=== PATIENT | male | born 1980 | race Two or more races ===

== ENCOUNTER 2020-07-12 08:46 | Outpatient (REF) | payer OTHER, SELFPAY ==
[2020-07-12 12:27] LABS: Alanine Aminotransferase 30 U/L (0-40); Albumin Level 4.1 g/dL (3.5-5.0); Alkaline Phosphatase 93 U/L (39-117); Anion Gap 12 (12-20); Aspartate Amino Transferase 19 U/L (5-37); Bilirubin Total 0.6 mg/dL (0.0-1.0); Blood Urea Nitrogen 19 mg/dL (9-16); Calcium 9.3 mg/dL (8.4-10.2); Carbon Dioxide 28 mmol/L (22-29); Chloride 101 mmol/L (96-108); Cholesterol 154 mg/dL; Estimated Glomerular Filt Rate > 60; Glucose Fasting 189 mg/dL (60-99); HDL Cholesterol 45 mg/dL; LDL Cholesterol Calculated 100 mg/dl; Potassium 4.4 mmol/l (3.3-5.1); Sodium 137 mmol/L (135-145); Total Protein 6.9 g/dL (6.5-8.0); Triglycerides 46 mg/dL
[2020-07-12 12:28] LABS: Free T4 (Free Thyroxine) 1.23 ng/dL (0.71-1.85); Thyroid Stimulating Hormone 0.62 mIU/mL (0.32-4.0)
[2020-07-12 13:47] LABS: Vitamin B12 415 pg/mL (200-900)
[2020-07-13 08:37] LABS: LDL Cholesterol Direct 106 mg/dL (<100)
[2020-07-13 11:22] LABS: Thyroglobulin Antibodies <1 IU/mL (< or = 1); Thyroid Peroxidase Antibodies <1 IU/mL (<9)
[2020-07-14 00:26] LABS: C Peptide 0.62 ng/mL (0.80-3.85)
[2020-07-15 16:17] LABS: Thyroid Stimulating Immunoglob <89 % baseline (<140)
[2020-07-15 16:42] LABS: Thyrotropin Receptor Antibody <1.00 IU/L (<=2.00)
[2020-07-15 22:31] LABS: Glutamic acid decarboxylase Ab <5 IU/mL (<5)
[2020-07-18 03:42] LABS: Islet Cell Antibody Screen NEGATIVE (NEGATIVE)
== END 2020-07-12 08:47 | disposition home or self-care (01) ==
LOC: HO.LAB 08:46
PROVIDERS: PCP Internal Medicine; Visit Provider Internal Medicine Endocrinology, Diabetes & Metabolism
DX: E10.65 Type 1 diabetes mellitus with hyperglycemia (principal); E10.21 Type 1 diabetes mellitus with diabetic nephropathy; E10.319 Type 1 diabetes mellitus with unspecified diabetic retinopathy without macular edema; E10.40 Type 1 diabetes mellitus with diabetic neuropathy, unspecified; E78.5 Hyperlipidemia, unspecified; E55.9 Vitamin D deficiency, unspecified; I10 Essential (primary) hypertension; R79.89 Other specified abnormal findings of blood chemistry
CPT/HCPCS: 36415; 80053; 80061; 82607; 82947; 83520; 83721; 84439; 84443; 84445; 84681; 86255; 86341; 86376; 86800

== ENCOUNTER 2021-03-14 13:13 | Inpatient (IN) | payer OTHER, SELFPAY ==
--- NOTE | ~2021-03-14 | XR_ITS ---
EXAMINATION: XR CHEST CLINICAL INFORMATION: Pleuritic chest pain COMPARISON: None TECHNIQUE: 2 views of the chest were obtained. FINDINGS: No significant abnormality is noted involving the heart, lungs, mediastinum, bony thorax or soft tissues. XR/XR chest 2V IMPRESSION: Unremarkable examination.
--- NOTE | ~2021-03-14 | XR_ITS ---
EXAMINATION: XR ANKLE, RIGHT CLINICAL INFORMATION: Concern for osteomyelitis COMPARISON: None TECHNIQUE: AP, lateral, and mortise views of the right ankle. FINDINGS: There is soft tissue swelling at the lateral malleolus. There is a skin ulceration at the lateral malleolus. There is no focal bone lesion. No abnormal periosteal reaction. There is no focal osteopenia. No radiographic evidence for osteomyelitis. No fracture or dislocation. The 5 mm osseous density inferior to the tip of lateral malleolus is a chronic change. XR/XR ankle RT min 3V IMPRESSION: Skin ulceration with soft tissue swelling at lateral malleolus. No acute osseous abnormality. No radiographic evidence for osteomyelitis.
--- NOTE | ~2021-03-14 | MR_ITS ---
EXAMINATION: MR ANKLE WITHOUT AND WITH CONTRAST, RIGHT CLINICAL INFORMATION: Nonhealing diabetic wound. COMPARISON: Radiographs 03/14/2021. TECHNIQUE: MRI of the ankle was performed before and after the intravenous administration of 7.5 mL Gadavist on a high-field scanner. FINDINGS: There is a skin ulceration superficial to the lateral malleolus with edema and heterogeneous enhancement of the underlying soft tissues compatible with cellulitis. This extends to the cortex where there is a subtle erosion and minimal edema/enhancement of the underlying bone marrow compatible with early osteomyelitis. Diffuse subcutaneous edema. Mild chronic Achilles tendinopathy. MR/MR ankle RT wo/w con IMPRESSION: Shallow ulcer superficial to the lateral malleolus with cellulitis and a very subtle cortical erosion of the underlying fibula and evidence of minimal or very early osteomyelitis.
[2021-03-14 13:42] VITALS: BP 108/65; PULSE 83; RESP 18; TEMP 36.5; O2SAT 97; BMI 20.5
[2021-03-14 15:14] LABS: MANUAL DIFF FLAG NO
[2021-03-14 15:16] LABS: Basophils Absolute Auto 0.1 X10*3/uL (0.0-0.2); Basophils Percent Auto 0.5 % (0-2); Eosinophils Absolute Auto 0.3 X10*3/uL (0.0-0.4); Eosinophils Percent Auto 2.9 % (0-4); Hemoglobin 13.2 g/dl (14.0-18.0); Imm Gran Abs Auto 0.02 X10*3/uL (0.00-0.03); Imm Gran Pct Auto 0.2 % (0.0-0.4); Lymphocytes Absolute Auto 2.6 X10*3/uL (1.2-4.9); Lymphocytes Percent Auto 27.8 % (20-40); Mean Corpuscular HGB Conc 34.7 g/dl (31.0-36.0); Mean Corpuscular Hemoglobin 31.1 pg (27.0-33.0); Mean Corpuscular Volume 89.4 fL (80-98); Mean Platelet Volume 12.1 fL (9.4-12.4); Monocytes Absolute Auto 1.1 X10*3/uL (0.1-1.2); Monocytes Percent Auto 12.1 % (2-11); Neutrophils Absolute Auto 5.2 X10*3/uL (2.0-8.3); Neutrophils Percent Auto 56.5 % (45-73); Platelet Count 247 X10*3/uL (160-400); Red Blood Count 4.25 X10*6/uL (4.60-5.80); Red Cell Distribution Width 12.2 % (11.0-16.0); White Blood Count 9.3 X10*3/uL (4.8-10.8)
[2021-03-14 15:45] LABS: Anion Gap 10 (12-20); Blood Urea Nitrogen 19 mg/dL (9-16); Carbon Dioxide 29 mmol/L (22-29); Chloride 102 mmol/L (96-108); Creatinine Clr Calc Pharmacy 55.8; Estimated Glomerular Filt Rate 42; Glucose Random 165 mg/dL (60-115); Potassium 4.9 mmol/L (3.3-5.1); Sodium 136 mmol/L (135-145)
[2021-03-14 17:49] VITALS: BP 173/101; PULSE 78; RESP 20; TEMP 36.4; O2SAT 99
--- NOTE | 2021-03-14 18:49 | ED_ITS ---
HPI - General Adult General Chief complaint: General Medical Stated complaint: need debridement,imaging and iv antibiotics Time Seen by Provider: 03/14/21 18:17 Source: patient Mode of arrival: ambulatory Limitations: no limitations History of Present Illness HPI narrative: patient diabetic scraped his right lateral malleolus about 4 weeks ago since then wound is not healing patient remove the scab 3 days ago a nd noted the increased pain and redness around the wound. Patient denies any fever or chills no pus discharge patient diabetic using insulin and blood sugar is well controlled Related Data Home Medications Medication Instructions Recorded Confirmed lisinopril 20 mg tablet 20 mg PO DAILY 07/12/20 07/12/20 pen needle, diabetic 32 gauge x #50 ea 07/12/20 07/12/20 Previous Rx's Medication Instructions Recorded insulin lispro 100 unit/mL See Rx Instructions SUBCUT 06/18/20 subcutaneous pen .COMPLEX 30 Days #15 ml cholecalciferol (vitamin D3) 50 50 mcg PO DAILY #30 cap 09/15/20 mcg (2,000 unit) capsule atorvastatin 20 mg tablet 20 mg PO BEDTIME 30 Days #30 tab 09/16/20 BD Marge 2nd Gen Pen Needle 32 #150 ea NS 03/14/21 gauge x Lantus Solostar U-100 Insulin 100 20 unit SUBCUT QPM 30 Days #15 ml 03/14/21 unit/mL (3 mL) subcutaneous pen NS Allergies Allergy/AdvReac Type Severity Reaction Status Date / Time No Known Allergies Allergy Verified 03/14/21 13:42 Review of Systems Review of Systems: Yes all other systems are reviewed and are negative PMFSH Past Medical History Medical History Diabetes type 1, uncontrolled Diabetic nephropathy associated with type 1 diabetes mellitus Diabetic neuropathy associated with type 1 diabetes mellitus Diabetic retinopathy associated with type 1 diabetes mellitus Dyslipidemia Hypertension Low TSH level Vitamin D deficiency Surgical History History of torsion of testis Hx of hernia repair Family History Family History Father Diabetes mellitus Mother Alzheimer disease Brother Diabetes mellitus Sister Breast cancer, stage 0 Social History Social History Years Smoked: 7 Advance Directives: No Advance Directives Information Provided: Yes Physical Exam Vital Signs: Vital Signs: Last Vital Signs Temp 97.6 F 03/14/21 17:49 Pulse 89 03/14/21 20:05 Resp 20 03/14/21 17:49 BP 168/100 H 03/14/21 20:05 Pulse Ox 99 03/14/21 17:49 Body Mass Index 20.5 Const: General: comfortable and no acute distress Orientation/consciousness: patient oriented x3 HENMT: Head: Yes normocephalic Eyes: General: appearance normal, both eyes and all related structures Neck: Neck: Yes normal visual inspection Chest: Chest palpation & inspection: normal inspection of the chest Resp: Effort & Inspection: normal respiratory effort Auscultation: clear to auscultation bilaterally Cardio: Rate: regular rate Rhythm: regular rhythm Heart sounds: S1 normal heart sound present and S2 normal heart sound present Peripheral pulse s: Peripheral pulses 2+ throughout GI: Inspection: Yes normal to inspection Palpation (GI): Soft to palpation and nontender Auscultation: normal bowel sounds Skin: General skin exam: no rashes or lesions noted Neuro: General: patient oriented x3 Extrem: Ankle/foot/toe images: 1. 2 cm round ulcer with scab with surrounding erythema and warmth warmth spreading all the way till mid landrum no crepitus no pus discharge Medical Decision Making MDM Narrative Medical decision making narrative: patient with nonhealing wound at right lateral malleolus close to the bone with warmth spreading to the mid leg with history of diabetes noticed to have elevated creatinine to 1.7 from baseline of 0.8. Will admit patient for IV antibiotics rule out osteomyelitis Lab Data Lab results reviewed: Yes I reviewed the patient's lab results. Result diagrams: 03/14/21 15:04 03/14/21 15:04 Labs: Lab Results 03/14/21 03/14/21 03/14/21 Range/Units 15:04 15:04 19:03 WBC 9.3 (4.8-10.8) X10*3/uL RBC 4.25 L (4.60-5.80) X10*6/uL Hgb 13.2 L (14.0-18.0) g/dl Hct 38.0 L (42-52) % MCV 89.4 (80-98) fL MCH 31.1 (27.0-33.0) pg MCHC 34.7 (31.0-36.0) g/dl RDW 12.2 (11.0-16.0) % Plt Count 247 (160-400) X10*3/uL MPV 12.1 (9.4-12.4) fL Immature Gran % (Auto) 0.2 (0.0-0.4) % Neut % (Auto) 56.5 (45-73) % Lymph % (Auto) 27.8 (20-40) % [place] % (Auto) 12.1 H (2-11) % Eos % (Auto) 2.9 (0-4) % Baso % (Auto) 0.5 (0-2) % Lymph # (Auto) 2.6 (1.2-4.9) X10*3/uL [place] # (Auto) 1.1 (0.1-1.2) X10*3/uL Eos # (Auto) 0.3 (0.0-0.4) X10*3/uL Baso # (Auto) 0.1 (0.0-0.2) X10*3/uL Abs Immat Gran (auto) 0.02 (0.00-0.03) X10*3/uL Absolute Neuts (auto) 5.2 (2.0-8.3) X10*3/uL Absolute Nucleated RBC 0.000 (0.0-0.012) X10*3/uL Nucleated RBC % (auto) 0.0 (0.0-0.2) /100WBC Sodium 136 (135-145) mmol/L Potassium 4.9 (3.3-5.1) mmol/L Chloride 102 (96-108) mmol/L Carbon Dioxide 29 (22-29) mmol/L Anion Gap 10 L (12-20) BUN 19 H (9-16) mg/dL Creatinine 1.77 H (0.5-1.4) mg/dL Estim Creat Clear Calc 55.8 Estimated GFR 42 Random Glucose 165 H (60-115) mg/dL Lactic Acid 0.7 (0.5-2.0) mmol/L Calcium 9.0 (8.4-10.2) mg/dL Discharge Plan Discharge Clinical Impression: Non-healing wound of right heel, CARLOS (acute kidney injury) Patient Disposition: Admitted As Inpatient
[2021-03-14 19:29] LABS: Lactic Acid 0.7 mmol/L (0.5-2.0)
[2021-03-14 20:05] VITALS: BP 168/100; PULSE 89
[2021-03-14] MEDS: lisinopriL 20 MG TABLET PO (20:05)
[2021-03-14] MEDS: Piperacillin Sodium/Tazobactam 3.375 GM in 0.9 % Sodium Chloride 50 ML IV (20:06)
[2021-03-14] MEDS: vancomycin HCL 1,000 MG in 0.9 % Sodium Chloride 250 ML 270 MG IV (20:11)
--- NOTE | 2021-03-14 21:57 | MHC.CM.PN ---
CM met with pt. Pending admission. No bed assignment yet. A&Ox3. No HCP- education provided and pt refuses at this time. [id number] YOHO. Live alone and has children 1/2 time. Uses diabetic supplies and has no services. D/C plan is home without services. Pt to arrange transportation at discharge. CM to follow for d/c needs.
[2021-03-14] MEDS: 0.9 % Sodium Chloride 1,000 ML 999 ML IVCONT (22:00)
--- NOTE | 2021-03-14 22:01 | PC.NURSE ---
NS UP AND RUNNING W/O SITE INTACT. COVID SWAB OBTAINED.
[2021-03-14 22:19] LABS: COVID-19 Test Negative (Negative)
--- NOTE | 2021-03-14 22:35 | PHA.MEDREC ---
Pharmacy Consult ? Medication Reconciliation Pharmacy has completed the medication reconciliation.
[2021-03-15] VITALS (14 sets, daily range): BP systolic 161–216; BP diastolic 80–116; PULSE 85–97; RESP 16–19; TEMP 35.9–37; O2SAT 97–98; BMI 20.9
--- NOTE | 2021-03-15 01:27 | PC.NURSE ---
FLOOR UNABLE TO TAKE REPORT WILL RETURN CALL.
--- NOTE | 2021-03-15 01:54 | PC.NURSE ---
report given to floor. pt to floor in w/c.
[2021-03-15 02:08] LABS: C Reactive Protein 0.47 mg/dL (< or = 0.50)
[2021-03-15] MEDS: Lactated Ringers 1,000 ML 125 ML IVCONT ×3 (02:36→20:34)
[2021-03-15] MEDS: Enoxaparin Sodium 40 MG/0.4 ML SYRINGE SUBCUT (02:38)
[2021-03-15] MEDS: Acetaminophen 325 MG TABLET 650 MG PO ×3 (02:38→14:55)
[2021-03-15] MEDS: oxyCODONE HCl Immed Release 5 MG TABLET PO ×3 (02:39→14:55)
[2021-03-15] MEDS: Insulin Glargine,Hum.rec.anlog 100 UNIT/ML 10 ML VIAL 20 UNIT SUBCUT (02:39)
[2021-03-15] MEDS: 0.9 % Sodium Chloride Flush 3 ML SYRINGE IVFLUSH ×2 (02:39→07:54)
[2021-03-15] MEDS: Piperacillin Sodium/Tazobactam 3.375 GM in 0.9 % Sodium Chloride 50 ML IV ×4 (02:45→22:20)
--- NOTE | 2021-03-15 05:36 | PM.IMHP ---
History of Present Illness Date of Service: 03/14/21 Chief Complaint: nonhealing wound this is a 40-year-old male with past medical history of diabetes as well as hypertension who presents hospital after an nonhealing right malleolus wound. Patient reports that about 4 weeks ago he was playing with his kids, so had a fall, scraped his right ankle, and did not think much of it until about 3 days ago on Sunday where he noticed that there was swelling as well as pain while working out. patient reports that although he has some neuropathy in his feet he does feel pain. He reports that he called his PCP and was asked to come to urgent care and urgent care sent him to the ED. He denies any fever but feels chills, denies any abdominal pain nausea or vomiting, no chest pain, no shortness of breath, no cough, no diarrhea constipation, no headache or change in vision, no dizziness, no urinary symptoms and otherwise no lower extremity edema except in his left foot. On arrival to the ED patient hemodynamically stable with no significant abnormal vitals Labs are significant for WBC count of 9.3, hemoglobin of 13.2, BUN of 19, creatinine of 1.77 from a baseline of around 0.8, ankle x-ray shows skin ulceration was soft tissue swelling at the lateral malleolus with no acute osseous abnormality. No radiographic evidence of osteomyelitis patient will be admitted for further management Review of Systems Review of Systems: Yes all other systems are reviewed and are negative [facility] Medical History Diabetes type 1, uncontrolled Diabetic nephropathy associated with type 1 diabetes mellitus Diabetic neuropathy associated with type 1 diabetes mellitus Diabetic retinopathy associated with type 1 diabetes mellitus Dyslipidemia Hypertension Low TSH level Vitamin D deficiency Family History Father Diabetes mellitus Mother Alzheimer disease Brother Diabetes mellitus Sister Breast cancer, stage 0 Surgical History History of torsion of testis Hx of hernia repair Social History Household Members: Children Housing: Apartment Do you presently have visiting nurse or other home services: No Patient Tobacco Use Status: Never used Tobacco Years Smoked: 7 e-Cigarette/Vaping Use: Never Used Use of substances other than those prescribed or required for medical reasons: No Have you been hit, kicked, punched, or otherwise hurt by someone within the past year? If so, by whom?: No Do you feel safe in your current relationship?: Yes Is there a partner from a previous relationship who is making you feel unsafe now?: No Are you made to feel afraid or neglected: No Advance Directives: No Advance Directives Information Provided: Yes Do you have thoughts of harming others: None Do you have a plan to hurt others: No Plan Recently lost weight without trying: No Nutrition Risks: No Nutritional Risk Poor oral hygiene: No service: No Current occupational status: employed Meds Allergies Allergy/AdvReac Type Severity Reaction Status Date / Time No Known Allergies Allergy Verified 03/14/21 13:42 Active Medications: Current Medications Generic Name Dose Route Start Last Admin Trade Name Freq PRN Reason Stop Dose Admin Acetaminophen 650 mg 03/15/21 01:50 03/15/21 02:38 Acetaminophen 325 Mg Tablet PO 650 mg Q6H PRN Administration Pain, Mild (Pain Scale 1-3) Enoxaparin Sodium 40 mg 03/15/21 01:50 03/15/21 02:38 Enoxaparin Sodium 40 Mg/0.4 Ml Syringe SUBCUT 40 mg Q24H SKYLER Administration Piperacillin Sod/Tazobactam 50 mls @ 100 mls/hr 03/15/21 03:00 03/15/21 03:19 Sod 3.375 gm/ Sodium Chloride IV Infused Q6H SKYLER Infusion Vancomycin HCl 1,250 mg/ 250 mls @ 166.667 mls/hr 03/15/21 01:50 Sodium Chloride IV Q12H SKYLER Lactated Ringer's 1,000 mls @ 125 mls/hr 03/15/21 01:50 03/15/21 03:19 Lr IVCONT 125 mls/hr .Q8H SKYLER Infusion Insulin Glargine 20 unit 03/15/21 01:50 03/15/21 02:39 Insulin Glargine,Hum.Rec.Anlog 100 Unit/Ml 10 Ml Vial SUBCUT 20 unit BEDTIME SKYLER Administration Insulin Human Lispro 0 unit 03/15/21 07:30 Insulin Lispro 100 Unit/Ml 3 Ml Vial SUBCUT QIDACHS [facility] Protocol Lisinopril 20 mg 03/15/21 09:00 Lisinopril 20 Mg Tablet PO DAILY [facility] Protocol Ondansetron HCl 4 mg 03/15/21 01:50 Ondansetron Hcl 4 Mg/2 Ml Vial IVPUSH Q8H PRN Nausea and Vomiting Oxycodone HCl 5 mg 03/15/21 01:50 03/15/21 02:39 Oxycodone Hcl Immed Release 5 Mg Tablet PO 5 mg Q6H PRN Administration Pain, Severe (Pain Scale 7-10) Pharmacy Consult 1 each 03/15/21 01:50 Consult Rx Vancomycin Dosing MISCELLANE DAILY PRN Consult order Sodium Chloride 3 ml 03/15/21 01:50 03/15/21 02:39 0.9 % Sodium Chloride Flush 3 Ml Syringe IVFLUSH 3 ml QSHIFT [facility] Administration Vitamin D 50 mcg 03/15/21 09:00 Cholecalciferol (Vitamin D3) 25 Mcg Tablet PO DAILY [facility] Home Medications Medication Instructions Recorded Confirmed Last Taken Type lisinopril 20 mg tablet 20 mg PO DAILY 07/12/20 03/14/21 03/14/21 History pen needle, diabetic 32 gauge x #50 ea 07/12/20 07/12/20 03/14/21 History insulin glargine [Lantus Solostar 20 unit SUBCUT BEDTIME 03/14/21 03/14/21 03/13/21 History U-100 Insulin] Physical Exam Vital Signs and Narrative: Vital Signs: Last Vital Signs Temp 97.5 F 03/15/21 04:00 Pulse 95 03/15/21 04:00 Resp 16 03/15/21 04:00 BP 165/88 H 03/15/21 04:00 Pulse Ox 97 03/15/21 04:00 Body Mass Index 20.9 Const: General: cooperative and no acute distress Orientation/consciousness: patient oriented x3 Eyes: General: appearance normal, both eyes and all related structures Pupils: Equal, round and reactive pupils present Resp: Effort & Inspection: normal respiratory effort and able to speak in complete sentences Auscultation: clear to auscultation bilaterally Cardio: Rate: regular rate Rhythm: regular rhythm GI: Palpation (GI): Soft to palpation Auscultation: normal bowel sounds Skin: Other: black skin ulceration on the lateral right malleolus with erythema, warmth, and edema Neuro: General: patient oriented x3 Cranial nerves: Yes Equal, round and reactive pupils present Cognition (Neuro): normal cognition Extrem: Other: skin ulceration of right malleolus General: Yes no pedal edema Results Labs CBC and Chem 7: 03/14/21 15:04 03/14/21 15:04 Labs: Laboratory Results - last 24 hr 03/14/21 03/14/21 03/14/21 15:04 15:04 19:03 MCV 89.4 MCH 31.1 MCHC 34.7 RDW 12.2 Plt Count 247 MPV 12.1 Immature Gran % (Auto) 0.2 Neut % (Auto) 56.5 Lymph % (Auto) 27.8 [place] % (Auto) 12.1 H Eos % (Auto) 2.9 Baso % (Auto) 0.5 Lymph # (Auto) 2.6 [place] # (Auto) 1.1 Eos # (Auto) 0.3 Baso # (Auto) 0.1 Abs Immat Gran (auto) 0.02 Absolute Neuts (auto) 5.2 Absolute Nucleated RBC 0.000 Nucleated RBC % (auto) 0.0 Anion Gap 10 L Estim Creat Clear Calc 55.8 Estimated GFR 42 Random Glucose 165 H Lactic Acid 0.7 Calcium 9.0 C-Reactive Protein 0.47 COVID-19 (ADAM) COVID-19 Clin Com 03/14/21 21:54 MCV MCH MCHC RDW Plt Count MPV Immature Gran % (Auto) Neut % (Auto) Lymph % (Auto) [place] % (Auto) Eos % (Auto) Baso % (Auto) Lymph # (Auto) [place] # (Auto) Eos # (Auto) Baso # (Auto) Abs Immat Gran (auto) Absolute Neuts (auto) Absolute Nucleated RBC Nucleated RBC % (auto) Anion Gap Estim Creat Clear Calc Estimated GFR Random Glucose Lactic Acid Calcium C-Reactive Protein COVID-19 (ADAM) Negative COVID-19 Clin Com See Note Imaging Radiologist's Impressions: Impressions Ankle X-Ray 03/14/21 17:34 IMPRESSION: Skin ulceration with soft tissue swelling at lateral malleolus. No acute osseous abnormality. No radiographic evidence for osteomyelitis. Assessment and Plan (1) Non-healing wound of right heel: Status: Acute (2) CARLOS (acute kidney injury): Status: Acute (3) Cellulitis: Status: Acute 40-year-old male with past medical history of diabetes who presents to the hospital with complaints of nonhealing right ankle wound # right lower extremity wound / cellulitis - will start patient on IV antibiotics, given his history is diabetes, nonhealing wound will start him on vanc and Zosyn which can be downgraded if ESR is low as well as MRI negative for osteo - afebrile, no leukocytosis - will order MRI to rule out osteomyelitis - CRP was low , will add ESR - will hold off on consult for ID - follow blood cultures # CARLOS - unclear etiology - sternum IV fluids - follow BMP # diabetes - patient is unclear if his with type 1 or type 2 - will continue home insulin - add low-dose sliding scale insulin - diabetic diet # hypertension - slightly elevated - continue lisinopril DVT prophylaxis: Lovenox Quality Stroke Does the patient have a stroke diagnosis?: No VTE Prior VTE?: No VTE Risk Level:: Medical - moderate - high VTE Device Contraindication: Treatment Not Indicated VTE Drug Contraindication: N/A - Med Ordered
[2021-03-15 06:34] LABS: Eosinophils Percent Auto 2.7 % (0-4); Platelet Count 233 X10*3/uL (160-400); Red Cell Distribution Width 12.1 % (11.0-16.0); SCAN SMEAR FLAG 1
[2021-03-15 06:36] LABS: Basophils Absolute Auto 0.1 X10*3/uL (0.0-0.2); Basophils Percent Auto 0.5 % (0-2); Eosinophils Absolute Auto 0.3 X10*3/uL (0.0-0.4); Hematocrit 34.6 % (42-52); Hemoglobin 12.1 g/dl (14.0-18.0); Imm Gran Abs Auto 0.02 X10*3/uL (0.00-0.03); Imm Gran Pct Auto 0.2 % (0.0-0.4); Lymphocytes Absolute Auto 3.1 X10*3/uL (1.2-4.9); Lymphocytes Percent Auto 31.2 % (20-40); Mean Corpuscular Hemoglobin 31.2 pg (27.0-33.0); Mean Corpuscular Volume 89.2 fL (80-98); Mean Platelet Volume 13.3 fL (9.4-12.4); Monocytes Percent Auto 10.5 % (2-11); Neutrophils Absolute Auto 5.4 X10*3/uL (2.0-8.3); Neutrophils Percent Auto 54.9 % (45-73); Red Blood Count 3.88 X10*6/uL (4.60-5.80); White Blood Count 9.9 X10*3/uL (4.8-10.8)
[2021-03-15 06:49] LABS: MANUAL DIFF FLAG NO; PLT ABN DIST 1
[2021-03-15 06:50] LABS: Anion Gap 10 (12-20); Blood Urea Nitrogen 19 mg/dL (9-16); Calcium 8.3 mg/dL (8.4-10.2); Carbon Dioxide 27 mmol/L (22-29); Chloride 103 mmol/L (96-108); Estimated Glomerular Filt Rate > 60; Glucose Random 349 mg/dL (60-115); Potassium 4.6 mmol/L (3.3-5.1); Sodium 135 mmol/L (135-145)
[2021-03-15 07:34] LABS: Erythrocyte Sedimentation Rate 38 MM/HR (0-15)
[2021-03-15 07:41] LABS: Glucose, Whole Blood 274 mg/dL (60-115)
[2021-03-15] MEDS: lisinopriL 20 MG TABLET PO (07:53)
[2021-03-15] MEDS: Insulin Lispro 100 UNIT/ML 3 ML VIAL SUBCUT ×3 (07:53→16:44)
[2021-03-15] MEDS: vancomycin HCL 750 MG in 0.9 % Sodium Chloride 250 ML 265 MG IV ×2 (07:54→20:57)
[2021-03-15] MEDS: Cholecalciferol (Vitamin D3) 25 MCG TABLET 50 MCG PO (07:54)
[2021-03-15 10:10] LABS: Glucose, Whole Blood 38 mg/dL (60-115)
[2021-03-15 10:38] LABS: Glucose, Whole Blood 96 mg/dL (60-115)
[2021-03-15 11:16] LABS: Glucose Random 93 mg/dL (60-115)
[2021-03-15 12:31] LABS: Glucose, Whole Blood 275 mg/dL (60-115)
--- NOTE | 2021-03-15 12:34 | PM.IMPN ---
Subjective Subjective Date of Service: 03/15/21 Interval History: follow-up foot wound, nonhealing history of diabetes no complaints of pain Physical Exam Vital Signs: Vital Signs: Last Vital Signs Temp 96.7 F L 03/15/21 12:00 Pulse 85 03/15/21 12:00 Resp 17 03/15/21 12:00 BP 164/84 H 03/15/21 12:00 Pulse Ox 97 03/15/21 12:00 Body Mass Index 20.9 Appearing in no acute distress Right foot non healing wound lung sounds are clear to auscultation heart regular rate rhythm, clear S1, S2 positive bowel sounds, abdomen is soft, nontender neuro patient is alert x3, no focal deficits Objective Data Current Medications Generic Name Dose Route Start Last Admin Trade Name Freq PRN Reason Stop Dose Admin Acetaminophen 650 mg 03/15/21 01:50 03/15/21 08:02 Acetaminophen 325 Mg Tablet PO 650 mg Q6H PRN Administration Pain, Mild (Pain Scale 1-3) Enoxaparin Sodium 40 mg 03/15/21 01:50 03/15/21 02:38 Enoxaparin Sodium 40 Mg/0.4 Ml Syringe SUBCUT 40 mg Q24H SKYLER Administration Piperacillin Sod/Tazobactam 50 mls @ 100 mls/hr 03/15/21 03:00 03/15/21 10:10 Sod 3.375 gm/ Sodium Chloride IV Infused Q6H SKYLER Infusion Lactated Ringer's 1,000 mls @ 125 mls/hr 03/15/21 01:50 03/15/21 12:07 Lr IVCONT Infused .Q8H SKYLER Infusion Vancomycin HCl 750 mg/ Sodium 265 mls @ 265 mls/hr 03/15/21 08:00 03/15/21 08:57 Chloride IV Infused Q12H SKYLER Infusion Insulin Glargine 20 unit 03/15/21 01:50 03/15/21 02:39 Insulin Glargine,Hum.Rec.Anlog 100 Unit/Ml 10 Ml Vial SUBCUT 20 unit BEDTIME SKYLER Administration Insulin Human Lispro 0 unit 03/15/21 07:30 03/15/21 07:53 Insulin Lispro 100 Unit/Ml 3 Ml Vial SUBCUT 6 unit QIDACHS SKYLER Administration Protocol Lisinopril 20 mg 03/15/21 09:00 03/15/21 07:53 Lisinopril 20 Mg Tablet PO 20 mg DAILY SKYLER Administration Protocol Ondansetron HCl 4 mg 03/15/21 01:50 Ondansetron Hcl 4 Mg/2 Ml Vial IVPUSH Q8H PRN Nausea and Vomiting Oxycodone HCl 5 mg 03/15/21 01:50 03/15/21 08:01 Oxycodone Hcl Immed Release 5 Mg Tablet PO 5 mg Q6H PRN Administration Pain, Severe (Pain Scale 7-10) Pharmacy Consult 1 each 03/15/21 01:50 Consult Rx Vancomycin Dosing MISCELLANE DAILY PRN Consult order Sodium Chloride 3 ml 03/15/21 01:50 03/15/21 07:54 0.9 % Sodium Chloride Flush 3 Ml Syringe IVFLUSH 3 ml QSHIFT [facility] Administration Vitamin D 50 mcg 03/15/21 09:00 03/15/21 07:54 Cholecalciferol (Vitamin D3) 25 Mcg Tablet PO 50 mcg DAILY SKYLER Administration Labs CBC & Chem 7: 03/15/21 05:41 03/15/21 10:39 Labs: Laboratory Results - last 24 hr 03/14/21 03/14/21 03/14/21 15:04 15:04 19:03 MCV 89.4 MCH 31.1 MCHC 34.7 RDW 12.2 Plt Count 247 MPV 12.1 Immature Gran % (Auto) 0.2 Neut % (Auto) 56.5 Lymph % (Auto) 27.8 [place] % (Auto) 12.1 H Eos % (Auto) 2.9 Baso % (Auto) 0.5 Lymph # (Auto) 2.6 [place] # (Auto) 1.1 Eos # (Auto) 0.3 Baso # (Auto) 0.1 Abs Immat Gran (auto) 0.02 Absolute Neuts (auto) 5.2 Absolute Nucleated RBC 0.000 Nucleated RBC % (auto) 0.0 ESR Anion Gap 10 L Estim Creat Clear Calc 55.8 Estimated GFR 42 POC Glucose Random Glucose 165 H Lactic Acid 0.7 Calcium 9.0 C-Reactive Protein 0.47 COVID-19 (ADAM) COVID-19 Clin Com 03/14/21 03/15/21 03/15/21 21:54 05:41 05:41 MCV 89.2 MCH 31.2 MCHC 35.0 RDW 12.1 Plt Count 233 MPV 13.3 H Immature Gran % (Auto) 0.2 Neut % (Auto) 54.9 Lymph % (Auto) 31.2 [place] % (Auto) 10.5 Eos % (Auto) 2.7 Baso % (Auto) 0.5 Lymph # (Auto) 3.1 [place] # (Auto) 1.0 Eos # (Auto) 0.3 Baso # (Auto) 0.1 Abs Immat Gran (auto) 0.02 Absolute Neuts (auto) 5.4 Absolute Nucleated RBC 0.000 Nucleated RBC % (auto) 0.0 ESR Anion Gap 10 L Estim Creat Clear Calc 84.0 Estimated GFR > 60 POC Glucose Random Glucose 349 H D Lactic Acid Calcium 8.3 L D C-Reactive Protein COVID-19 (ADAM) Negative COVID-19 Clin Com See Note 03/15/21 03/15/21 03/15/21 05:41 07:35 10:01 MCV MCH MCHC RDW Plt Count MPV Immature Gran % (Auto) Neut % (Auto) Lymph % (Auto) [place] % (Auto) Eos % (Auto) Baso % (Auto) Lymph # (Auto) [place] # (Auto) Eos # (Auto) Baso # (Auto) Abs Immat Gran (auto) Absolute Neuts (auto) Absolute Nucleated RBC Nucleated RBC % (auto) ESR 38 H Anion Gap Estim Creat Clear Calc Estimated GFR POC Glucose 274 H 38 L* Random Glucose Lactic Acid Calcium C-Reactive Protein COVID-19 (ADAM) COVID-19 Clin Com 03/15/21 03/15/21 03/15/21 10:35 10:39 12:27 MCV MCH MCHC RDW Plt Count MPV Immature Gran % (Auto) Neut % (Auto) Lymph % (Auto) [place] % (Auto) Eos % (Auto) Baso % (Auto) Lymph # (Auto) [place] # (Auto) Eos # (Auto) Baso # (Auto) Abs Immat Gran (auto) Absolute Neuts (auto) Absolute Nucleated RBC Nucleated RBC % (auto) ESR Anion Gap Estim Creat Clear Calc Estimated GFR POC Glucose 96 275 H Random Glucose 93 D Lactic Acid Calcium C-Reactive Protein COVID-19 (ADAM) COVID-19 Clin Com Progress Note: A&P (1) Cellulitis: Status: Acute Assessment and Plan: 40-year-old male with past medical history of diabetes who presents to the hospital with complaints of nonhealing right ankle wound Right lower extremity wound / cellulitis Hx of diabetes, non healing foot wound after injury Elevated ESR -Start vancomycin and Zosyn - MRI to rule out osteomyelitis - ID consult -General surgery for debridement CARLOS. at baseline. Likely from some component of dehydration - follow BMP Diabetes. usually does carb counting had an episode of hypoglycemia this morning - decreased sliding scale - follow blood pressures closely hypertension. slightly elevated - continue lisinopril DVT prophylaxis with Lovenox Attending: Dr. Arita full code Quality Stroke Does the patient have a stroke diagnosis?: No VTE Prior VTE?: No VTE Risk Level:: Medical - moderate - high VTE Device Contraindication: Treatment Not Indicated VTE Drug Contraindication: N/A - Med Ordered
[2021-03-15] MEDS: ondansetron HCL 4 MG/2 ML VIAL IVPUSH (13:43)
--- NOTE | 2021-03-15 14:28 | P.CONGS_ITS ---
History of Present Illness Consult details Consult date: 03/15/21 Reason for consult: wound care Requesting physician: Lisa Liang Narrative: This is a 40-year-old gentleman with a history of diabetes mellitus. Patient reports about 1 month ago he was playing with his son where he misstepped and cut his right ankle. He reports that he has had a difficult time with the area healing. He reports there was some redness around the area of the scab. About 5 days ago patient noted that the foot became painful on the right and he noticed some swelling of the right foot. He went to the urgent care who told him to come to the emergency department for likely administration of antibiotics. Patient reports his discomfort is maybe a 5 to 02/24. Patient was admitted to medicine service placed on IV antibiotics and surgical consult w as obtained regarding possible debridement of the right malleolar nonhealing ulcer. Patient denies any drainage from the area, fever, chills, shortness of breath, chest pain. Review of Systems Review of Systems: Yes all other systems are reviewed and are negative Constitutional: Constitutional: Denies difficulty sleeping, Denies excessive sweating, Denies fatigue, Denies headache(s), Denies lethargy and Denies weakness Eyes: Eyes: Denies blurry vision ENT: Denies change in voice, Denies vertigo, Denies dizziness, Denies headache(s), Denies lip swelling, Denies neck pain, Denies tinnitus, Denies sinus pain, Denies throat swelling and Denies tongue swelling Cardiovascular: Cardiovascular: Denies chest pain at rest, Denies chest pain with activity, Denies syncope, Denies rapid heart rate, Reports pedal edema ( Right foot), Denies dyspnea and Denies dyspnea on exertion Respiratory: Respiratory: Denies cough, Denies excessive phlegm production, Denies pain on inspiration, Denies dyspnea, Denies dyspnea on exertion and Denies wheezing Gastrointestinal: Gastrointestinal: Denies hematochezia and Denies change in bowel habits Genitourinary: Genitourinary: Denies difficulty urinating, Denies genital pain, Denies flank pain, Denies testicular pain, Denies urinary frequency, Denies urinary hesitancy, Denies urinary incontinence and Denies urinary urgency Musculoskeletal: Musculoskeletal: Denies neck pain Neurologic: Denies confusion, Denies vertigo, Denies dizziness, Denies syncope, Denies headache(s) and Denies weakness Psychiatric: Psychiatric: Denies anxiety, Denies confusion and Denies depression Endocrine: Endocrine: Denies cold intolerance, Denies excessive sweating, Denies fatigue and Denies heat intolerance Allergic/Immunologic: Allergic/Immunologic: Denies lip swelling, Denies throat swelling, Denies tongue swelling and Denies wheezing PMFSH Past Medical History Medical History (Updated 03/15/21 @ 14:44 by Yaquelin Aguila MD) Diabetes type 1, uncontrolled Diabetic nephropathy associated with type 1 diabetes mellitus Diabetic neuropathy associated with type 1 diabetes mellitus Diabetic retinopathy associated with type 1 diabetes mellitus Dyslipidemia Hypertension Low TSH level Vitamin D deficiency Family History Family History (Updated 03/15/21 @ 14:32 by Yaquelin Aguila MD) Father Diabetes mellitus Mother Alzheimer disease Brother Diabetes mellitus Non-Hodgkin lymphoma in child Sister Breast cancer, stage 0 Sister No problems noted. Sister No problems noted. Sister No problems noted. Sister No problems noted. Sister No problems noted. Sister No problems noted. Surgical History Surgical History (Updated 03/15/21 @ 14:32 by Yaqulein Aguila MD) History of left inguinal hernia repair History of torsion of testis Social History Social History (Updated 03/15/21 @ 14:33 by Yaquelin Aguila MD) Household Members: Children Housing: Apartment Do you presently have visiting nurse or other home services: No Alcohol intake: current Alcohol intake frequency: holidays/special occasions only Patient Tobacco Use Status: Former Tobacco user Quit Date: 2009 Smoked: 7 e-Cigarette/Vaping Use: Never Used Use of substances other than those prescribed or required for medical reasons: No Currently Displaying Signs/Symptoms of Drug Intoxication Withdrawal: No Have you been hit, kicked, punched, or otherwise hurt by someone within the past year? If so, by whom?: No Do you feel safe in your current relationship?: Yes Is there a partner from a previous relationship who is making you feel unsafe now?: No Are you made to feel afraid or neglected: No Advance Directives: No Advance Directives Information Provided: Yes Do you have thoughts of harming others: None Do you have a plan to hurt others: No Plan Recently lost weight without trying: No Nutrition Risks: No Nutritional Risk Poor oral hygiene: No service: No Current occupational status: employed Meds Allergies Allergy/AdvReac Type Severity Reaction Status Date / Time No Known Allergies Allergy Verified 03/14/21 13:42 Active Medications: Current Medications Generic Name Dose Route Start Last Admin Trade Name Freq PRN Reason Stop Dose Admin Acetaminophen 650 mg 03/15/21 01:50 03/15/21 08:02 Acetaminophen 325 Mg Tablet PO 650 mg Q6H PRN Administration Pain, Mild (Pain Scale 1-3) Collagenase 1 appl 03/16/21 09:00 Collagenase Clostridium Hist. 30 Gm Tube TOPICAL DAILY [facility] Protocol Enoxaparin Sodium 40 mg 03/15/21 01:50 03/15/21 02:38 Enoxaparin Sodium 40 Mg/0.4 Ml Syringe SUBCUT 40 mg Q24H [facility] Administration Piperacillin Sod/Tazobactam 50 mls @ 100 mls/hr 03/15/21 03:00 03/15/21 10:10 Sod 3.375 gm/ Sodium Chloride IV Infused Q6H [facility] Infusion Lactated Ringer's 1,000 mls @ 125 mls/hr 03/15/21 01:50 03/15/21 12:07 Lr IVCONT Infused .Q8H [facility] Infusion Vancomycin HCl 750 mg/ Sodium 265 mls @ 265 mls/hr 03/15/21 08:00 03/15/21 08:57 Chloride IV Infused Q12H [facility] Infusion Insulin Glargine 20 unit 03/15/21 01:50 03/15/21 02:39 Insulin Glargine,Hum.Rec.Anlog 100 Unit/Ml 10 Ml Vial SUBCUT 20 unit BEDTIME [facility] Administration Insulin Human Lispro 0 unit 03/15/21 07:30 03/15/21 13:39 Insulin Lispro 100 Unit/Ml 3 Ml Vial SUBCUT 4 unit QIDACHS [facility] Administration Protocol Lisinopril 20 mg 03/15/21 09:00 03/15/21 07:53 Lisinopril 20 Mg Tablet PO 20 mg DAILY [facility] Administration Protocol Ondansetron HCl 4 mg 03/15/21 01:50 03/15/21 13:43 Ondansetron Hcl 4 Mg/2 Ml Vial IVPUSH 4 mg Q8H PRN Administration Nausea and Vomiting Oxycodone HCl 5 mg 03/15/21 01:50 03/15/21 08:01 Oxycodone Hcl Immed Release 5 Mg Tablet PO 5 mg Q6H PRN Administration Pain, Severe (Pain Scale 7-10) Pharmacy Consult 1 each 03/15/21 01:50 Consult Rx Vancomycin Dosing MISCELLANE DAILY PRN Consult order Sodium Chloride 3 ml 03/15/21 01:50 03/15/21 07:54 0.9 % Sodium Chloride Flush 3 Ml Syringe IVFLUSH 3 ml QSHIFT [facility] Administration Vitamin D 50 mcg 03/15/21 09:00 03/15/21 07:54 Cholecalciferol (Vitamin D3) 25 Mcg Tablet PO 50 mcg DAILY [facility] Administration Home Medications Medication Instructions Recorded Confirmed Last Taken Type lisinopril 20 mg tablet 20 mg PO DAILY 07/12/20 03/14/21 03/14/21 History pen needle, diabetic 32 gauge x #50 ea 07/12/20 07/12/20 03/14/21 History insulin glargine [Lantus Solostar 20 unit SUBCUT BEDTIME 03/14/21 03/14/2102/16 History U-100 Insulin] Physical Exam Vital Signs: Vital Signs: Last Vital Signs Temp 96.7 F L 03/15/21 12:00 Pulse 85 03/15/21 12:00 Resp 17 03/15/21 12:00 BP 164/84 H 03/15/21 12:00 Pulse Ox 97 03/15/21 12:00 Body Mass Index 20.9 Const: General: cooperative, healthy appearing, comfortable and no acute distress; No confusion Orientation/consciousness: No confusion HENMT: Head: Yes normal to inspection, Yes normocephalic and Yes atraumatic Ears: hearing grossly normal bilaterally Mouth: Normal oral and palatal mucosa present Throat: Yes posterior oropharynx normal Eyes: General: appearance normal, both eyes and all related structures Eyelids: Yes eyelids normal Conjunctivae: conjunctivae normal Sclerae: sclerae normal EOM: EOMs intact bilaterally Neck: Neck: Yes normal visual inspection, Yes full ROM and Yes no lymphadenopathy Thyroid: Thyroid normal Resp: Effort & Inspection: normal respiratory effort, able to speak in complete sentences, audible wheezes and no cough Auscultation: clear to auscultation bilaterally Cardio: Jugular venous distension: no JVD Rate: regular rate Heart sounds: S1 normal heart sound present and S2 normal heart sound present GI: Inspection: No distended Palpation (GI): Soft to palpation and nontender Skin: Other: ulcer about 1.5 cm round and is well circumscribed located on the right lateral malleolus of the lower extremity. There is a eschar located in the center of this ulcer that is about the same size as the ulcer. There is slight erythema directly surrounding the edges of the ulcer. There is mild tenderness to palpation. There is no evidence of fluctuation. Neuro: General: No confusion Extrem: Other: Please see skin exam for ulcer description. Bilateral lower extremities with 2+ dorsalis pedis pulses. No other lesions. The right foot has 3+ pitting edema to the ankle only. Psych: Appearance: grossly normal Mental Status: mental status grossly normal Speech and movement: Normal speech and movement present Affect: normal affect Results Labs Result diagrams: 03/15/21 05:41 03/15/21 10:39 Labs: Abnormal lab results 03/14/21 03/14/21 03/15/21 Range/Units 15:04 15:04 05:41 RBC 4.25 L 3.88 L (4.60-5.80) X10*6/uL Hgb 13.2 L 12.1 L (14.0-18.0) g/dl Hct 38.0 L 34.6 L (42-52) % MPV 13.3 H (9.4-12.4) fL Logan % (Auto) 12.1 H (2-11) % ESR (0-15) MM/HR Anion Gap 10 L (12-20) BUN 19 H (9-16) mg/dL Creatinine 1.77 H (0.5-1.4) mg/dL POC Glucose (60-115) mg/dL Random Glucose 165 H (60-115) mg/dL Calcium (8.4-10.2) mg/dL 03/15/21 03/15/21 03/15/21 Range/Units 05:41 05:41 07:35 RBC (4.60-5.80) X10*6/uL Hgb (14.0-18.0) g/dl Hct (42-52) % MPV (9.4-12.4) fL Logan % (Auto) (2-11) % ESR 38 H (0-15) MM/HR Anion Gap 10 L (12-20) BUN 19 H (9-16) mg/dL Creatinine (0.5-1.4) mg/dL POC Glucose 274 H (60-115) mg/dL Random Glucose 349 H D (60-115) mg/dL Calcium 8.3 L D (8.4-10.2) mg/dL 03/15/21 03/15/21 Range/Units 10:01 12:27 RBC (4.60-5.80) X10*6/uL Hgb (14.0-18.0) g/dl Hct (42-52) % MPV (9.4-12.4) fL Logan % (Auto) (2-11) % ESR (0-15) MM/HR Anion Gap (12-20) BUN (9-16) mg/dL Creatinine (0.5-1.4) mg/dL POC Glucose 38 L* 275 H (60-115) mg/dL Random Glucose (60-115) mg/dL Calcium (8.4-10.2) mg/dL Short CBC 03/14/21 03/15/21 Range/Units 15:04 05:41 WBC 9.3 9.9 (4.8-10.8) X10*3/uL Hgb 13.2 L 12.1 L (14.0-18.0) g/dl Hct 38.0 L 34.6 L (42-52) % Plt Count 247 233 (160-400) X10*3/uL BMP 03/14/21 03/15/21 15:04 05:41 Sodium 136 135 Potassium 4.9 4.6 Chloride 102 103 Carbon Dioxide 29 27 BUN 19 H 19 H Creatinine 1.77 H 1.20 Calcium 9.0 8.3 L D All other labs normal. Assessment and Plan (1) Non-healing wound of right lower extremity: Status: Acute this is a 40-year-old gentleman who has had a nonhealing or very slow healing wound on the right malleolus since sustaining an injury by cutting the ankle about 1 month ago. Patient reports developing swelling and some pain in the right foot about 5 days ago which was a change from previous status. Patient currently has a eschar on the ulcer without any evidence of fluctuance on exam or gangrene. Patient will have a MRI to further evaluate the ankle. I plan to take the patient to the operating room to excise the eschar. There may be some element of vascular disease that is causing the wound to take a prolonged time for healing given the patient's history of poorly controlled diabetes. A wound care consult has been placed and they will make recommendations for dressings for this wound following debridement. I discussed risks benefits alternatives with the patient he agrees to proceed. I spent about 45 minutes with this patient performing history physical exam attempting bedside debridement and documenting. The procedure will take place tomorrow. (2) Cellulitis: Status: Acute (3) Diabetes type 1, uncontrolled: Status: Acute Procedures Date of Service Date of Service: 03/15/21
[2021-03-15] MEDS: Collagenase Clostridium Hist. 30 GM TUBE 1 APPL TOPICAL (15:09)
--- NOTE | 2021-03-15 16:26 | P.CNID_ITS ---
History of Present Illness Data of Consult Service Date: 03/15/21 Requesting physician: Cj Arita Primary Care Provider: Mary Beth Nix MD HPI Reason for consult: right foot infection He presents to hospital after foot injury four weeks ago. He has scraped area on cement He has worsening redness and purulence Review of Systems Review of Systems: Yes all other systems are reviewed and are negative PMFSH Past Medical History Medical History Diabetes type 1, uncontrolled Diabetic nephropathy associated with type 1 diabetes mellitus Diabetic neuropathy associated with type 1 diabetes mellitus Diabetic retinopathy associated with type 1 diabetes mellitus Dyslipidemia Hypertension Low TSH level Vitamin D deficiency Family History Family History Father Diabetes mellitus Mother Alzheimer disease Brother Diabetes mellitus Non-Hodgkin lymphoma in child Sister Breast cancer, stage 0 Sister No problems noted. Sister No problems noted. Sister No problems noted. Sister No problems noted. Sister No problems noted. Sister No problems noted. Surgical History Surgical History History of left inguinal hernia repair History of torsion of testis Social History Social History (Updated 03/15/21 @ 14:33 by Yaquelin Aguila MD) Household Members: Children Housing: Apartment Do you presently have visiting nurse or other home services: No Alcohol intake: current Alcohol intake frequency: holidays/special occasions only Patient Tobacco Use Status: Former Tobacco user Quit Date: 2009 Years Smoked: 7 e-Cigarette/Vaping Use: Never Used Use of substances other than those prescribed or required for medical reasons: No Currently Displaying Signs/Symptoms of Drug Intoxication Withdrawal: No Have you been hit, kicked, punched, or otherwise hurt by someone within the past year? If so, by whom?: No Do you feel safe in your current relationship?: Yes Is there a partner from a previous relationship who is making you feel unsafe now?: No Are you made to feel afraid or neglected: No Advance Directives: No Advance Directives Information Provided: Yes Do you have thoughts of harming others: None Do you have a plan to hurt others: No Plan Recently lost weight without trying: No Nutrition Risks: No Nutritional Risk Poor oral hygiene: No service: No Current occupational status: employed Meds Allergies Allergy/AdvReac Type Severity Reaction Status Date / Time No Known Allergies Allergy Verified 03/14/21 13:42 Active Medications: Current Medications Generic Name Dose Route Start Last Admin Trade Name Freq PRN Reason Stop Dose Admin Acetaminophen 650 mg 03/15/21 01:50 03/15/21 14:55 Acetaminophen 325 Mg Tablet PO 650 mg Q6H PRN Administration Pain, Mild (Pain Scale 1-3) Collagenase 1 appl 03/15/21 15:00 03/15/21 15:09 Collagenase Clostridium Hist. 30 Gm Tube TOPICAL 1 appl DAILY [facility] Administration Protocol Enoxaparin Sodium 40 mg 03/15/21 01:50 03/15/21 02:38 Enoxaparin Sodium 40 Mg/0.4 Ml Syringe SUBCUT 40 mg Q24H SK[facility]ER Administration Piperacillin Sod/Tazobactam 50 mls @ 100 mls/hr 03/15/21 03:00 03/15/21 15:36 Sod 3.375 gm/ Sodium Chloride IV Infused Q6H [facility] Infusion Lactated Ringer's 1,000 mls @ 125 mls/hr 03/15/21 01:50 03/15/21 12:07 Lr IVCONT Infused .Q8H [facility] Infusion Vancomycin HCl 750 mg/ Sodium 265 mls @ 265 mls/hr 03/15/21 08:00 03/15/21 08:57 Chloride IV Infused Q12H [facility] Infusion Insulin Glargine 20 unit 03/15/21 01:50 03/15/21 02:39 Insulin Glargine,Hum.Rec.Anlog 100 Unit/Ml 10 Ml Vial SUBCUT 20 unit BEDTIME [facility] Administration Insulin Human Lispro 0 unit 03/15/21 07:30 03/15/21 13:39 Insulin Lispro 100 Unit/Ml 3 Ml Vial SUBCUT 4 unit QIDACHS [facility] Administration Protocol Lisinopril 20 mg 03/15/21 09:00 03/15/21 07:53 Lisinopril 20 Mg Tablet PO 20 mg DAILY [facility] Administration Protocol Ondansetron HCl 4 mg 03/15/21 01:50 03/15/21 13:43 Ondansetron Hcl 4 Mg/2 Ml Vial IVPUSH 4 mg Q8H PRN Administration Nausea and Vomiting Oxycodone HCl 5 mg 03/15/21 01:50 03/15/21 14:55 Oxycodone Hcl Immed Release 5 Mg Tablet PO 5 mg Q6H PRN Administration Pain, Severe (Pain Scale 7-10) Pharmacy Consult 1 each 03/15/21 01:50 Consult Rx Vancomycin Dosing MISCELLANE DAILY PRN Consult order Sodium Chloride 3 ml 03/15/21 01:50 03/15/21 15:21 0.9 % Sodium Chloride Flush 3 Ml Syringe IVFLUSH Not Given QSHIFT [facility] Vitamin D 50 mcg 03/15/21 09:00 03/15/21 07:54 Cholecalciferol (Vitamin D3) 25 Mcg Tablet PO 50 mcg DAILY [facility] Administration Home Medications Medication Instructions Recorded Confirmed Last Taken Type lisinopril 20 mg tablet 20 mg PO DAILY 07/12/20 03/14/21 03/14/21 History pen needle, diabetic 32 gauge x #50 ea 07/12/20 07/12/20 03/14/21 History insulin glargine [Lantus Solostar 20 unit SUBCUT BEDTIME 03/14/21 03/14/21 03/13/21 History U-100 Insulin] Physical Exam Vital Signs: Vital Signs: Last Vital Signs Temp 97.2 F 03/15/21 14:59 Pulse 87 03/15/21 14:59 Resp 16 03/15/21 14:59 BP 174/87 H 03/15/21 14:59 Pulse Ox 97 03/15/21 14:59 Body Mass Index 20.9 Const: General: cooperative HENMT: Head: Yes normal to inspection Mouth: Normal oral and palatal mucosa present Resp: Effort & Inspection: normal respiratory effort Cardio: Rate: regular rate Rhythm: regular rhythm GI: Palpation (GI): Soft to palpation and nontender Extrem: Other: right lateral malleolus open area Results Labs CBC & Chem 7: 03/15/21 05:41 03/15/21 10:39 Labs: Short CBC 03/15/21 Range/Units 05:41 WBC 9.9 (4.8-10.8) X10*3/uL Hgb 12.1 L (14.0-18.0) g/dl Hct 34.6 L (42-52) % Plt Count 233 (160-400) X10*3/uL BMP 03/15/21 05:41 Sodium 135 Potassium 4.6 Chloride 103 Carbon Dioxide 27 BUN 19 H Creatinine 1.20 Calcium 8.3 L D Assessment and Plan (1) Non-healing wound of right lower extremity: Status: Acute He has probable early osteomyelitis on MRI He has possible staph or strep Would continue antibiotics IV Ertapenem or Vancomycin six weeks possible depends on culture. (2) Cellulitis: Status: Acute
--- NOTE | 2021-03-15 16:28 | PC.NURSE ---
Skin/wound assessment completed today. Patient has a right ankle wound from an injury. It has eschar and is unstageable at this time. Patient is a diabetic. Triad was applied and cover with foam. Santyl was ordered by Lisa Liang NP which will start on March 16 at 9am. No other skin issues found.
[2021-03-15 16:38] LABS: Glucose, Whole Blood 242 mg/dL (60-115)
--- NOTE | 2021-03-15 20:30 | ECG_ITS ---
Test Reason : Chest pain Blood Pressure : / mmHG Vent. Rate : 086 BPM Atrial Rate : 086 BPM P-R Int : 128 ms QRS Dur : 090 ms QT Int : 380 ms P-R-T Axes : 039 041 063 degrees QTc Int : 454 ms Normal sinus rhythm Possible Left atrial enlargement Borderline ECG No previous ECGs available Referred By: Jesus Duque Electronically Signed By:KISHAN SWANSON MD
[2021-03-15 20:31] LABS: Glucose, Whole Blood 151 mg/dL (60-115)
[2021-03-15 20:42] LABS: Glucose, Whole Blood 162 mg/dL (60-115)
[2021-03-15] MEDS: Morphine Sulfate 4 MG/ML CARTRIDGE IVPUSH (21:08)
[2021-03-15] MEDS: hydrALAZINE HCl 20 MG/ML VIAL 5 MG IVPUSH (21:14)
--- NOTE | 2021-03-15 21:18 | PM.EVENT ---
Event Note Date of Service: 03/16/21 Event Note: pt developed chest discomfort as well as neck pa/in anad headache. no neck stiffness, no fever, no chest pain. . troponin negative, EKG negative. BP found to be 198/110 treated with dose of morphin, maalox, hydralazine IV pt has vomiting , zofran prn for vomitng
[2021-03-15 22:22] LABS: Troponin-I High Sensitivity 5.9 ng/L (<3.5-35.0)
[2021-03-16] VITALS (20 sets, daily range): BP systolic 124–184; BP diastolic 67–100; PULSE 83–103; RESP 12–18; TEMP 36.6–37.6; O2SAT 96–99
[2021-03-16] MEDS: ondansetron HCL 4 MG/2 ML VIAL IVPUSH ×2 (00:16→09:29)
[2021-03-16] MEDS: Magnesium Hydrox/Alum Hydrox 30 ML ORAL.SUSP 15 ML PO (00:20)
[2021-03-16] MEDS: Piperacillin Sodium/Tazobactam 3.375 GM in 0.9 % Sodium Chloride 50 ML IV ×4 (04:11→21:50)
[2021-03-16] MEDS: LORazepam 2 MG/ML VIAL 0.5 MG IVPUSH ×2 (05:06→22:47)
[2021-03-16] MEDS: hydrALAZINE HCl 20 MG/ML VIAL 5 MG IVPUSH (05:08)
[2021-03-16] MEDS: Lactated Ringers 1,000 ML 125 ML IVCONT (06:25)
--- NOTE | 2021-03-16 06:56 | PC.NURSE ---
at 2030 pt is c/o chest pain and back of neck opain and h/a his chest pain is mid chest non radiating rapid response called md ordered ekg, troponin hydralazine 5 mg iv for bp 185/85 pt receved hydralazine twice morphine iv , zofran for nausea, maalax, and lorazepam, bp improved is now 139/72 and his feeling better now.
[2021-03-16] MEDS: vancomycin HCL 750 MG in 0.9 % Sodium Chloride 250 ML 265 MG IV ×2 (07:44→19:24)
[2021-03-16] MEDS: lisinopriL 20 MG TABLET PO (07:46)
[2021-03-16] MEDS: Collagenase Clostridium Hist. 30 GM TUBE 1 APPL TOPICAL (07:47)
[2021-03-16 07:56] LABS: Glucose, Whole Blood 181 mg/dL (60-115)
[2021-03-16 07:57] LABS: Hematocrit 34.1 % (42-52); Hemoglobin 11.8 g/dl (14.0-18.0); Mean Corpuscular HGB Conc 34.6 g/dl (31.0-36.0); Mean Corpuscular Volume 89.5 fL (80-98); Platelet Count 233 X10*3/uL (160-400); Red Blood Count 3.81 X10*6/uL (4.60-5.80); Red Cell Distribution Width 12.2 % (11.0-16.0)
[2021-03-16 08:02] LABS: INTERNATIONAL NORM RATIO 1.1 (0.9-1.1); Prothrombin Time 12.8 SEC (10.8-13.0)
[2021-03-16 08:22] LABS: Anion Gap 14 (12-20); Blood Urea Nitrogen 19 mg/dL (9-16); Calcium 8.4 mg/dL (8.4-10.2); Carbon Dioxide 25 mmol/L (22-29); Chloride 103 mmol/L (96-108); Creatinine Clr Calc Pharmacy 86.2; Estimated Glomerular Filt Rate > 60; Glucose Random 200 mg/dL (60-115); Sodium 138 mmol/L (135-145)
--- NOTE | 2021-03-16 11:44 | P.PNIM_ITS ---
Subjective Subjective Date of Service: 03/16/21 Interval History: seen and examined this morning Reporting nausea and intermittent vomiting since yesterday afternoon as well as right-sided pleuritic chest pain which began overnight. EKG done overnight nonischemic. Troponin 5.9. Blood pressure found to be elevated. Given IV hydralazine and morphine for pain. This morning blood pressure has improved, still with mild right-sided pleuritic chest pain. Review of Systems Review of Systems: Yes all other systems are reviewed and are negative Constitutional Constitutional: Denies chills and Denies fever(s) Respiratory Respiratory: Denies cough Gastrointestinal Gastrointestinal: Denies abdominal pain, Reports nausea and Reports vomiting Physical Exam Vital Signs: Vital Signs: Last Vital Signs Temp 97.8 F 03/16/21 04:00 Pulse 95 03/16/21 06:05 Resp 18 03/16/21 04:00 BP 139/72 03/16/21 06:05 Pulse Ox 98 03/16/21 04:00 Body Mass Index 20.9 Const: Nutritional Appearance: well nourished Orientation/consciousness: patient oriented x3 HENMT: Head: Yes normocephalic and Yes atraumatic Eyes: Sclerae: sclerae normal Chest: Chest palpation & inspection: normal inspection of the chest Resp: Effort & Inspection: normal respiratory effort and no respiratory distress Cardio: Rate: regular rate Rhythm: regular rhythm GI: Palpation (GI): Soft to palpation and nontender Neuro: General: patient oriented x3 Cranial nerves: Yes CN's II-XII intact bilaterally and Yes Bilaterally intact EOM present Extrem: Other: right ankle ulcer over lateral malleolus With small surrounding erythema, no drainage Objective Data Current Medications Generic Name Dose Route Start Last Admin Trade Name Freq PRN Reason Stop Dose Admin Acetaminophen 650 mg 03/15/21 01:50 03/15/21 14:55 Acetaminophen 325 Mg Tablet PO 650 mg Q6H PRN Administration Pain, Mild (Pain Scale 1-3) Al Hydroxide/Mg Hydroxide 15 ml 03/15/21 20:46 03/16/21 00:20 Magnesium Hydrox/Alum Hydrox 30 Ml Oral.Susp PO 15 ml Q4H PRN Administration Chest Pain Collagenase 1 appl 03/15/21 15:00 03/16/21 07:47 Collagenase Clostridium Hist. 30 Gm Tube TOPICAL 1 appl DAILY [facility] Administration Protocol Enoxaparin Sodium 40 mg 03/15/21 01:50 03/16/21 03:12 Enoxaparin Sodium 40 Mg/0.4 Ml Syringe SUBCUT Not Given Q24H [facility] Piperacillin Sod/Tazobactam 50 mls @ 100 mls/hr 03/15/21 03:00 03/16/21 10:20 Sod 3.375 gm/ Sodium Chloride IV Infused Q6H [facility] Infusion Vancomycin HCl 750 mg/ Sodium 265 mls @ 265 mls/hr 03/15/21 08:00 03/16/21 09:16 Chloride IV Infused Q12H [facility] Infusion Insulin Glargine 20 unit 03/15/21 01:50 03/15/21 21:13 Insulin Glargine,Hum.Rec.Anlog 100 Unit/Ml 10 Ml Vial SUBCUT Not Given BEDTIME [facility] Insulin Human Lispro 0 unit 03/15/21 07:30 03/16/21 11:31 Insulin Lispro 100 Unit/Ml 3 Ml Vial SUBCUT Not Given QIDACHS [facility] Protocol Lisinopril 20 mg 03/15/21 09:00 03/16/21 07:46 Lisinopril 20 Mg Tablet PO 20 mg DAILY [facility] Administration Protocol Ondansetron HCl 4 mg 03/15/21 01:50 03/16/21 09:29 Ondansetron Hcl 4 Mg/2 Ml Vial IVPUSH 4 mg Q8H PRN Administration Nausea and Vomiting Oxycodone HCl 5 mg 03/15/21 01:50 03/15/21 14:55 Oxycodone Hcl Immed Release 5 Mg Tablet PO 5 mg Q6H PRN Administration Pain, Severe (Pain Scale 7-10) Pharmacy Consult 1 each 03/15/21 01:50 Consult Rx Vancomycin Dosing MISCELLANE DAILY PRN Consult order Sodium Chloride 3 ml 03/15/21 01:50 03/16/21 07:44 0.9 % Sodium Chloride Flush 3 Ml Syringe IVFLUSH Not Given QSHIFT [facility] Vitamin D 50 mcg 03/15/21 09:00 03/16/21 07:46 Cholecalciferol (Vitamin D3) 25 Mcg Tablet PO Not Given DAILY [facility] Labs CBC & Chem 7: 03/16/21 07:20 03/16/21 07:20 Labs: Laboratory Results - last 24 hr 06/29/21 06/29/21 06/29/21 12:27 16:32 20:28 WBC RBC Hgb Hct MCV MCH MCHC RDW Plt Count MPV Absolute Nucleated RBC Nucleated RBC % (auto) PT INR Sodium Potassium Chloride Carbon Dioxide Anion Gap BUN Creatinine Estim Creat Clear Calc Estimated GFR POC Glucose 275 H 242 H 151 H Random Glucose Calcium Troponin I High Sens Vancomycin Trough 03/15/21 03/15/21 03/16/21 20:39 21:22 07:20 WBC RBC Hgb Hct MCV MCH MCHC RDW Plt Count MPV Absolute Nucleated RBC Nucleated RBC % (auto) PT 12.8 INR 1.1 Sodium Potassium Chloride Carbon Dioxide Anion Gap BUN Creatinine Estim Creat Clear Calc Estimated GFR POC Glucose 162 H Random Glucose Calcium Troponin I High Sens 5.9 Vancomycin Trough 03/16/21 03/16/21 03/16/21 07:20 07:20 07:20 WBC 10.0 RBC 3.81 L Hgb 11.8 L Hct 34.1 L MCV 89.5 MCH 31.0 MCHC 34.6 RDW 12.2 Plt Count 233 MPV 13.0 H Absolute Nucleated RBC 0.000 Nucleated RBC % (auto) 0.0 PT INR Sodium 138 Potassium 4.0 Chloride 103 Carbon Dioxide 25 Anion Gap 14 BUN 19 H Creatinine 1.17 Estim Creat Clear Calc 86.2 Estimated GFR > 60 POC Glucose Random Glucose 200 H D Calcium 8.4 Troponin I High Sens Vancomycin Trough 10.0 03/16/21 07:40 WBC RBC Hgb Hct MCV MCH MCHC RDW Plt Count MPV Absolute Nucleated RBC Nucleated RBC % (auto) PT INR Sodium Potassium Chloride Carbon Dioxide Anion Gap BUN Creatinine Estim Creat Clear Calc Estimated GFR POC Glucose 181 H Random Glucose Calcium Troponin I High Sens Vancomycin Trough Microbiology Microbiology Results: Microbiology 03/14/21 20:05 Blood Culture - Preliminary Blood - Venous No growth after 24 hours. 03/14/21 19:03 Blood Culture - Preliminary Blood - Venous No growth after 24 hours. Quality Stroke Does the patient have a stroke diagnosis?: No VTE Prior VTE?: No VTE Risk Level:: Medical - moderate - high VTE Device Contraindication: Treatment Not Indicated VTE Drug Contraindication: N/A - Med Ordered Assessment and Plan (1) Cellulitis: Status: Acute Assessment and Plan: 40-year-old male with past medical history of diabetes who presents to the hospital with complaints of nonhealing right ankle wound Right lower extremity wound / cellulitis Hx of diabetes, non healing foot wound after injury Elevated ESR, MRI showing possible early osteomyelitis - seen by ID, recommend 4 weeks IV antibiotics - Seen by surgery planned for debridement today - continue vancomycin and Zosyn, will need PICC line for long-term antibiotics when blood cultures final - blood cultures negative x 24 hours - continue local wound care chest pain EKG done overnight nonischemic. Troponin neg - will get chest x-ray hypertension. blood pressure elevated overnight, required IV hydralazine. Improved this morning - continue lisinopril - monitor blood pressure closely CARLOS. improving Likely from some component of dehydration - follow BMP Diabetes. usually does carb counting had an episode of hypoglycemia yesterday -decreased sliding scale - follow blood sugar closely DVT prophylaxis with Lovenox Attending: Dr. Arita full code
[2021-03-16 12:12] LABS: Glucose, Whole Blood 197 mg/dL (60-115)
--- NOTE | 2021-03-16 13:29 | MHC.CM.PN ---
EMR REVIEWED, PER HOSPITALIST FINAL CULTURES WILL BE BACK TONIGHT AND PICC/MIDLINE TO BE PLACED TOMORROW AND PT WILL BE ABLE TO D/C AFTER FIRST DOSE OF IV ABX, CM SPOKE W/PT WHO HAS NO PREFERENCE OF COMPANIES, BELIEVES HE HAS SOMEONE WHO CAN ASSIST HIM A HOME AND WILL BE ABLE TO AUTOMATION QA ANALYST. REFERRALS MADE FOR VNA & [facility], CM TO CONT TO FOLLOW D/C NEEDS.
[2021-03-16 14:18] LABS: Glucose, Whole Blood 220 mg/dL (60-115)
--- NOTE | 2021-03-16 14:28 | P.CONAN_ITS ---
HPI - Anesthesia Eval Consult details Narrative: right ankle cellulitis PMFSH Active Problems Active Problems: All Active Problems (Updated 03/16/21 @ 14:04 by Dorina Moore RN) Non-healing wound of right heel (Acute) CARLOS (acute kidney injury) (Acute) Cellulitis (Acute) Non-healing wound of right lower extremity (Acute) Diabetes type 1, uncontrolled (Acute) Diabetic neuropathy associated with type 1 diabetes mellitus (Acute) Diabetic retinopathy associated with type 1 diabetes mellitus (Acute) Hypertension (Acute) Dyslipidemia (Acute) Low TSH level (Acute) Vitamin D deficiency (Acute) Diabetic nephropathy associated with type 1 diabetes mellitus (Acute) Past Medical History Medical History (Updated 03/16/21 @ 14:04 by Dorina Moore RN) COVID-19 vaccine administered Diabetes type 1, uncontrolled Diabetic nephropathy associated with type 1 diabetes mellitus Diabetic neuropathy associated with type 1 diabetes mellitus Diabetic retinopathy associated with type 1 diabetes mellitus Dyslipidemia Hypertension Low TSH level Vitamin D deficiency Family History Family History Father Diabetes mellitus Mother Alzheimer disease Brother Diabetes mellitus Non-Hodgkin lymphoma in child Sister Breast cancer, stage 0 Sister No problems noted. Sister No problems noted. Sister No problems noted. Sister No problems noted. Sister No problems noted. Sister No problems noted. Surgical History Surgical History (Updated 03/16/21 @ 14:03 by Dorina Moore RN) History of left inguinal hernia repair History of torsion of testis Status post repair of arteriovenous fistula Social History Social History (Updated 03/15/21 @ 14:33 by Yaquelin Aguila MD) Household Members: Children Housing: Apartment Do you presently have visiting nurse or other home services: No Alcohol intake: current Alcohol intake frequency: holidays/special occasions only Patient Tobacco Use Status: Former Tobacco user Quit Date: >10 yrs ago Years Smoked: 7 e-Cigarette/Vaping Use: Never Used service: No Current occupational status: employed Meds Allergies Allergy/AdvReac Type Severity Reaction Status Date / Time No Known Allergies Allergy Verified 03/14/21 13:42 Active Medications: Current Medications Generic Name Dose Route Start Last Admin Trade Name Freq PRN Reason Stop Dose Admin Acetaminophen 650 mg 03/15/21 01:50 03/15/21 14:55 Acetaminophen 325 Mg Tablet PO 650 mg Q6H PRN Administration Pain, Mild (Pain Scale 1-3) Al Hydroxide/Mg Hydroxide 15 ml 03/15/21 20:46 03/16/21 00:20 Magnesium Hydrox/Alum Hydrox 30 Ml Oral.Susp PO 15 ml Q4H PRN Administration Chest Pain Collagenase 1 appl 03/15/21 15:00 03/16/21 07:47 Collagenase Clostridium Hist. 30 Gm Tube TOPICAL 1 appl DAILY ON LICENSE OF [facility] Administration Protocol Enoxaparin Sodium 40 mg 03/15/21 01:50 03/16/21 03:12 Enoxaparin Sodium 40 Mg/0.4 Ml Syringe SUBCUT Not Given Q24H ON LICENSE OF [facility] Piperacillin Sod/Tazobactam 50 mls @ 100 mls/hr 03/15/21 03:00 03/16/21 10:20 Sod 3.375 gm/ Sodium Chloride IV Infused Q6H ON LICENSE OF [facility] Infusion Vancomycin HCl 750 mg/ Sodium 265 mls @ 265 mls/hr 03/15/21 08:00 03/16/21 09:16 Chloride IV Infused Q12H ON LICENSE OF [facility] Infusion Insulin Glargine 20 unit 03/15/21 01:50 03/15/21 21:13 Insulin Glargine,Hum.Rec.Anlog 100 Unit/Ml 10 Ml Vial SUBCUT Not Given BEDTIME ON LICENSE OF [facility] Insulin Human Lispro 0 unit 03/15/21 07:30 03/16/21 11:31 Insulin Lispro 100 Unit/Ml 3 Ml Vial SUBCUT Not Given QIDACHS ON LICENSE OF [facility] Protocol Lisinopril 20 mg 03/15/21 09:00 03/16/21 07:46 Lisinopril 20 Mg Tablet PO 20 mg DAILY ON LICENSE OF [facility] Administration Protocol Ondansetron HCl 4 mg 03/15/21 01:50 03/16/21 09:29 Ondansetron Hcl 4 Mg/2 Ml Vial IVPUSH 4 mg Q8H PRN Administration Nausea and Vomiting Oxycodone HCl 5 mg 03/15/21 01:50 03/15/21 14:55 Oxycodone Hcl Immed Release 5 Mg Tablet PO 5 mg Q6H PRN Administration Pain, Severe (Pain Scale 7-10) Pharmacy Consult 1 each 03/15/21 01:50 Consult Rx Vancomycin Dosing MISCELLANE DAILY PRN Consult order Sodium Chloride 3 ml 03/15/21 01:50 03/16/21 07:44 0.9 % Sodium Chloride Flush 3 Ml Syringe IVFLUSH Not Given QSHIFT ON LICENSE OF [facility] Vitamin D 50 mcg 03/15/21 09:00 03/16/21 07:46 Cholecalciferol (Vitamin D3) 25 Mcg Tablet PO Not Given DAILY ON LICENSE OF [facility] Home Medications Medication Instructions Recorded Confirmed Last Taken Type lisinopril 20 mg tablet 20 mg PO DAILY 07/12/20 03/14/21 03/14/21 History pen needle, diabetic 32 gauge x #50 ea 07/12/20 07/12/20 03/14/21 History insulin glargine [Lantus Solostar 20 unit SUBCUT BEDTIME 03/14/21 03/14/21 03/13/21 History U-100 Insulin] Exam Exam Date and Time: March 16, 2021 1428 Height,Weight and Vital Signs: Height 6 ft 2 in Weight 74.1 kg Last Vital Signs Temp 99.3 F 03/16/21 13:56 Pulse 94 03/16/21 13:56 Resp 16 03/16/21 13:56 BP 163/96 H 03/16/21 13:56 Pulse Ox 97 03/16/21 13:56 Pertinent Lab Results Pertinent Lab Results: Laboratory Tests 03/14/21 03/14/21 03/14/21 15:04 15:04 19:03 WBC 9.3 RBC 4.25 L Hgb 13.2 L Hct 38.0 L MCV 89.4 MCH 31.1 MCHC 34.7 RDW 12.2 Plt Count 247 MPV 12.1 Immature Gran % (Auto) 0.2 Neut % (Auto) 56.5 Lymph % (Auto) 27.8 Imperial % (Auto) 12.1 H Eos % (Auto) 2.9 Baso % (Auto) 0.5 Lymph # (Auto) 2.6 Imperial # (Auto) 1.1 Eos # (Auto) 0.3 Baso # (Auto) 0.1 Abs Immat Gran (auto) 0.02 Absolute Neuts (auto) 5.2 Absolute Nucleated RBC 0.000 Nucleated RBC % (auto) 0.0 ESR PT INR Sodium 136 Potassium 4.9 Chloride 102 Carbon Dioxide 29 Anion Gap 10 L BUN 19 H Creatinine 1.77 H Estim Creat Clear Calc 55.8 Estimated GFR 42 POC Glucose Random Glucose 165 H Lactic Acid 0.7 Calcium 9.0 Troponin I High Sens C-Reactive Protein 0.47 Vancomycin Trough COVID-19 ([facility]) COVID-19 Clin Com 03/14/21 03/15/21 03/15/21 21:54 05:41 05:41 WBC 9.9 RBC 3.88 L Hgb 12.1 L Hct 34.6 L MCV 89.2 MCH 31.2 MCHC 35.0 RDW 12.1 Plt Count 233 MPV 13.3 H Immature Gran % (Auto) 0.2 Neut % (Auto) 54.9 Lymph % (Auto) 31.2 Imperial % (Auto) 10.5 Eos % (Auto) 2.7 Baso % (Auto) 0.5 Lymph # (Auto) 3.1 Imperial # (Auto) 1.0 Eos # (Auto) 0.3 Baso # (Auto) 0.1 Abs Immat Gran (auto) 0.02 Absolute Neuts (auto) 5.4 Absolute Nucleated RBC 0.000 Nucleated RBC % (auto) 0.0 ESR PT INR Sodium 135 Potassium 4.6 Chloride 103 Carbon Dioxide 27 Anion Gap 10 L BUN 19 H Creatinine 1.20 Estim Creat Clear Calc 84.0 Estimated GFR > 60 POC Glucose Random Glucose 349 H D Lactic Acid Calcium 8.3 L D Troponin I High Sens C-Reactive Protein Vancomycin Trough COVID-19 ([facility]) Negative COVID-19 Clin Com See Note 03/15/21 03/15/21 03/15/21 05:41 07:35 10:01 WBC RBC Hgb Hct MCV MCH MCHC RDW Plt Count MPV Immature Gran % (Auto) Neut % (Auto) Lymph % (Auto) Imperial % (Auto) Eos % (Auto) Baso % (Auto) Lymph # (Auto) Imperial # (Auto) Eos # (Auto) Baso # (Auto) Abs Immat Gran (auto) Absolute Neuts (auto) Absolute Nucleated RBC Nucleated RBC % (auto) ESR 38 H PT INR Sodium Potassium Chloride Carbon Dioxide Anion Gap BUN Creatinine Estim Creat Clear Calc Estimated GFR POC Glucose 274 H 38 L* Random Glucose Lactic Acid Calcium Troponin I High Sens C-Reactive Protein Vancomycin Trough COVID-19 ([facility]) COVID-19 Clin Com 03/15/21 03/15/21 03/15/21 10:35 10:39 12:27 WBC RBC Hgb Hct MCV MCH MCHC RDW Plt Count MPV Immature Gran % (Auto) Neut % (Auto) Lymph % (Auto) Imperial % (Auto) Eos % (Auto) Baso % (Auto) Lymph # (Auto) Imperial # (Auto) Eos # (Auto) Baso # (Auto) Abs Immat Gran (auto) Absolute Neuts (auto) Absolute Nucleated RBC Nucleated RBC % (auto) ESR PT INR Sodium Potassium Chloride Carbon Dioxide Anion Gap BUN Creatinine Estim Creat Clear Calc Estimated GFR POC Glucose 96 275 H Random Glucose 93 D Lactic Acid Calcium Troponin I High Sens C-Reactive Protein Vancomycin Trough COVID-19 ([facility]) COVID-19 IMRSV 03/15/21 03/15/21 03/15/21 16:32 20:28 20:39 WBC RBC Hgb Hct MCV MCH MCHC RDW Plt Count MPV Immature Gran % (Auto) Neut % (Auto) Lymph % (Auto) Imperial % (Auto) Eos % (Auto) Baso % (Auto) Lymph # (Auto) Imperial # (Auto) Eos # (Auto) Baso # (Auto) Abs Immat Gran (auto) Absolute Neuts (auto) Absolute Nucleated RBC Nucleated RBC % (auto) ESR PT INR Sodium Potassium Chloride Carbon Dioxide Anion Gap BUN Creatinine Estim Creat Clear Calc Estimated GFR POC Glucose 242 H 151 H 162 H Random Glucose Lactic Acid Calcium Troponin I High Sens C-Reactive Protein Vancomycin Trough COVID-19 ([facility]) COVID-19 IMRSV 03/15/21 03/16/21 03/16/21 21:22 07:20 07:20 WBC RBC Hgb Hct MCV MCH MCHC RDW Plt Count MPV Immature Gran % (Auto) Neut % (Auto) Lymph % (Auto) Imperial % (Auto) Eos % (Auto) Baso % (Auto) Lymph # (Auto) Imperial # (Auto) Eos # (Auto) Baso # (Auto) Abs Immat Gran (auto) Absolute Neuts (auto) Absolute Nucleated RBC Nucleated RBC % (auto) ESR PT 12.8 INR 1.1 Sodium Potassium Chloride Carbon Dioxide Anion Gap BUN Creatinine Estim Creat Clear Calc Estimated GFR POC Glucose Random Glucose Lactic Acid Calcium Troponin I High Sens 5.9 C-Reactive Protein Vancomycin Trough 10.0 COVID-19 ([facility]) COVID-19 Clin Com 03/16/21 03/16/21 03/16/21 07:20 07:20 07:40 WBC 10.0 RBC 3.81 L Hgb 11.8 L Hct 34.1 L MCV 89.5 MCH 31.0 MCHC 34.6 RDW 12.2 Plt Count 233 MPV 13.0 H Immature Gran % (Auto) Neut % (Auto) Lymph % (Auto) Imperial % (Auto) Eos % (Auto) Baso % (Auto) Lymph # (Auto) Imperial # (Auto) Eos # (Auto) Baso # (Auto) Abs Immat Gran (auto) Absolute Neuts (auto) Absolute Nucleated RBC 0.000 Nucleated RBC % (auto) 0.0 ESR PT INR Sodium 138 Potassium 4.0 Chloride 103 Carbon Dioxide 25 Anion Gap 14 BUN 19 H Creatinine 1.17 Estim Creat Clear Calc 86.2 Estimated GFR > 60 POC Glucose 181 H Random Glucose 200 H D Lactic Acid Calcium 8.4 Troponin I High Sens C-Reactive Protein Vancomycin Trough COVID-19 ([facility]) COVID-19 [employer] Com 03/16/21 03/16/21 12:05 14:10 WBC RBC Hgb Hct MCV MCH MCHC RDW Plt Count MPV Immature Gran % (Auto) Neut % (Auto) Lymph % (Auto) Imperial % (Auto) Eos % (Auto) Baso % (Auto) Lymph # (Auto) Imperial # (Auto) Eos # (Auto) Baso # (Auto) Abs Immat Gran (auto) Absolute Neuts (auto) Absolute Nucleated RBC Nucleated RBC % (auto) ESR PT INR Sodium Potassium Chloride Carbon Dioxide Anion Gap BUN Creatinine Estim Creat Clear Calc Estimated GFR POC Glucose 197 H 220 H Random Glucose Lactic Acid Calcium Troponin I High Sens C-Reactive Protein Vancomycin Trough COVID-19 ([facility]) COVID-19 Clin Com Airway Mallampati Class: II TM Dist: >3cm Neck ROM: Full Loose/Missing/Broken Teeth: No Heart: [id number] Lungs: cta b/l Assessment and Plan Assessment Anesthesia Assessment: Anesthesia Plan Discussed, PAT Visit and Chart Reviewed Final Anesthetic Review NPO: Yes ASA Class: III Final Preanesthetic Review: No Changes in Pt Med Stat, Meds/Allgs Chart Reviewed, Consent Obtained/Reviewed and Anes Risks/Benef Reviewed Patient Risk: Intermediate Procedure Risk: Low Assessment/Block/Sedation in SS: Assess/Block/Sedation-SS Anesthetic Plan Anesthetic Plan: MAC: and Agree w/ Assess. and Plan Disposition: Standard PACU
--- NOTE | 2021-03-16 15:03 | P.BOP_ITS ---
Brief Operative Note Date of Service: 03/16/21 Pre-op diagnosis: Nonhealing wound of the right ankle Post-op diagnosis: same Procedure: debridement of the right ankle wound Implants: none Surgeon: Yaquelin Aguila MD Anesthesia: MAC and local Was an Motor And Controls Tester used for this Procedure?: No Estimated blood loss (mL): 2 Pathology: other ( wound of the right ankle) Condition: stable Disposition: PACU
[2021-03-16 16:23] LABS: Glucose, Whole Blood 219 mg/dL (60-115)
[2021-03-16] MEDS: Insulin Lispro 100 UNIT/ML 3 ML VIAL SUBCUT ×2 (16:41→21:51)
[2021-03-16] MEDS: oxyCODONE HCl Immed Release 5 MG TABLET PO (19:32)
[2021-03-16 20:41] LABS: Glucose, Whole Blood 328 mg/dL (60-115)
--- NOTE | 2021-03-16 21:30 | OP_ITS ---
SURGEON: Yaquelin Aguila MD PREOPERATIVE DIAGNOSIS: POSTOPERATIVE DIAGNOSIS: PROCEDURE PERFORMED: Debridement of right ankle nonhealing wound. ESTIMATED BLOOD LOSS: COMPLICATIONS: None. ANESTHESIA: MAC with local anesthetic. ASSISTANTS: None. SPECIMENS: PREPROCEDURE DIAGNOSIS: Nonhealing wound of the right ankle. POSTPROCEDURE DIAGNOSIS: Nonhealing wound of the right ankle. CONDITION: Postprocedure, good. DESCRIPTION OF PROCEDURE: The patient was brought into the operating room and left on the bed. A safety time-out was performed. MAC anesthesia was administered using propofol by the nurse manager media relations. Once the patient was adequately sedated, we prepped and draped the right foot and lower leg in the normal sterile fashion using Betadine scrub and paint. We anesthetized the planned excision area using 1% lidocaine with epinephrine and 0.25% Marcaine plain. We then used a #15 scalpel to take a circular area of skin of the nonhealing wound of the right ankle skin down to the prefascial plane. We passed this off the field for pathology. We created hemostasis within the wound. We used an additional amount of local anesthetic. Once we ensured that there was hemostasis, we irrigated the wound, and then placed bacitracin and a non-stick dressing and a 2 x 2 wet dressing. We placed several fluffs, 4 x 4 dressing, and a Jordyn wrap. The patient tolerated the procedure well and was awakened in stable condition prior to transfer to recovery room. SPECIMEN: Nonhealing wound of the right malleolus. Yaquelin Aguila MD UM/MODL / [id number] MTDD
[2021-03-16] MEDS: Insulin Glargine,Hum.rec.anlog 100 UNIT/ML 10 ML VIAL 20 UNIT SUBCUT (21:52)
[2021-03-16] MEDS: 0.9 % Sodium Chloride Flush 3 ML SYRINGE IVFLUSH (22:51)
[2021-03-17] VITALS (8 sets, daily range): BP systolic 174–204; BP diastolic 86–108; PULSE 74–86; RESP 16–20; TEMP 36.6–37.2; O2SAT 97–98
[2021-03-17] MEDS: Enoxaparin Sodium 40 MG/0.4 ML SYRINGE SUBCUT (01:49)
[2021-03-17] MEDS: oxyCODONE HCl Immed Release 5 MG TABLET PO ×2 (01:52→08:58)
[2021-03-17] MEDS: Piperacillin Sodium/Tazobactam 3.375 GM in 0.9 % Sodium Chloride 50 ML IV ×2 (02:15→08:58)
[2021-03-17] MEDS: Cholecalciferol (Vitamin D3) 25 MCG TABLET 50 MCG PO (07:25)
[2021-03-17] MEDS: lisinopriL 20 MG TABLET PO (07:25)
[2021-03-17] MEDS: vancomycin HCL 750 MG in 0.9 % Sodium Chloride 250 ML 265 MG IV (07:25)
[2021-03-17 07:35] LABS: Glucose, Whole Blood 181 mg/dL (60-115)
[2021-03-17] MEDS: 0.9 % Sodium Chloride Flush 3 ML SYRINGE IVFLUSH ×3 (07:37→20:11)
[2021-03-17] MEDS: Collagenase Clostridium Hist. 30 GM TUBE 1 APPL TOPICAL (07:37)
[2021-03-17] MEDS: ondansetron HCL 4 MG/2 ML VIAL IVPUSH (07:43)
[2021-03-17] MEDS: Magnesium Hydrox/Alum Hydrox 30 ML ORAL.SUSP 15 ML PO ×2 (07:43→12:45)
[2021-03-17 07:55] LABS: Anion Gap 9 (12-20); Blood Urea Nitrogen 23 mg/dL (9-16); Carbon Dioxide 29 mmol/L (22-29); Chloride 104 mmol/L (96-108); Creatinine Clr Calc Pharmacy 74.7; Estimated Glomerular Filt Rate 58; Glucose Random 193 mg/dL (60-115); Potassium 4.1 mmol/L (3.3-5.1); Sodium 138 mmol/L (135-145)
[2021-03-17] MEDS: Omeprazole 20 MG CAPSULE.DR PO (09:47)
[2021-03-17] MEDS: lisinopriL 10 MG TABLET PO (09:48)
--- NOTE | 2021-03-17 11:17 | MHC.CM.PN ---
Addendum entered by Lizett Pan RN 03/17/21 13:37: PER [facility] THEY ARE UNABLE TO DELIVER PT'S IV MEDICATION SOONER THAN END OF DAY TOMORROW, ALSO REPORTED LIAISON UNABLE TO DO TEACH BEFORE TOMORROW MORNING DUE TO STAFFING, HOSPITALIST AWARE. PT'S BP ALSO ELEVATED AND PT SENSITIVE TO MANY ANTIHYPERTENSIVES, HOSPITALIST TO AD MEDICATION AND PT WILL D/C TOMORROW 03/18/2021 AFTER DOSE OF IV ABX. Original Note: EMR REVIEWED, PT HAD RIGHT FOOT DEBRIDEMENT YESTERDAY 03/16/2021, CM MET W/PT WHILE WOUND CARE NURSE WAS IN ROOM, CM REQUESTED WOUND NURSE DO TEACHING WITH PT HE WILL NOT HAVE DAILY VNA, WOUND NURSE IN AGREEMENT IS IS WAITING FOR WOUND CARE ORDERS. CM LEFT MESSAGE FOR [facility] AT 11AM [phone] TO SEE IF SHE CAN COME THIS AFTERNOON INSTEAD OF TOMORROW MORNING TO DO A TEACH FOR PICC LINE, CM AWAITING RETURN CALL.
--- NOTE | 2021-03-17 11:39 | PM.PNGS ---
Subjective Subjective Date of Service: 03/17/21 Interval history: patient feeling well. Pain well controlled. Patient is postop day 1. Status post debridement of nonhealing right lateral ankle wound. Vital signs are within normal limits. The patient will likely be discharged home from the Medicine Service today. Physical Exam Vital Signs: Vital Signs: Last Vital Signs Temp 97.9 F 03/17/21 07:07 Pulse 82 03/17/21 09:48 Resp 16 03/17/21 07:07 BP 182/98 H 03/17/21 09:48 Pulse Ox 98 03/17/21 07:07 Body Mass Index 20.9 Extrem: Other: Dressing in place on the right foot and ankle. Dressings clean dry intact. Motor and sensory are intact in the toes. Progress Note: A&P Assessment and plan (1) Status post right foot surgery: Status: Acute Assessment and Plan: patient doing well status post right ankle debridement. Patient may be discharged home to follow-up with wound care as an outpatient for continued wound care and dressing changes. Patient will start Aquacel dressings to the wound starting tomorrow and the Aquacel will need to be changed every other day. Patient should continue to follow-up with wound care and does not need to follow up with me as an outpatient. (2) Non-healing wound of right heel: Status: Acute Fall Risk Details Current Medications: Current Medications Generic Name Dose Route Start Last Admin Trade Name Freq PRN Reason Stop Dose Admin Acetaminophen 650 mg 03/15/21 01:50 03/15/21 14:55 Acetaminophen 325 Mg Tablet PO 650 mg Q6H PRN Administration Pain, Mild (Pain Scale 1-3) Al Hydroxide/Mg Hydroxide 15 ml 03/15/21 20:46 03/17/21 07:43 Magnesium Hydrox/Alum Hydrox 30 Ml Oral.Susp PO 15 ml Q4H PRN Administration Chest Pain Collagenase 1 appl 03/15/21 15:00 03/17/21 07:37 Collagenase Clostridium Hist. 30 Gm Tube TOPICAL 1 appl DAILY SKYLER Administration Protocol Enoxaparin Sodium 40 mg 03/15/21 01:50 03/17/21 01:49 Enoxaparin Sodium 40 Mg/0.4 Ml Syringe SUBCUT 40 mg Q24H SKYLER Administration Fentanyl 50 mcg 03/16/21 14:36 Fentanyl Citrate/Pf 100 Mcg/2 Ml Vial IVPUSH Q5M PRN Pain, Severe (Pain Scale 7-10) Piperacillin Sod/Tazobactam 50 mls @ 100 mls/hr 03/15/21 03:00 03/17/21 09:50 Sod 3.375 gm/ Sodium Chloride IV Infused Q6H [facility] Infusion Promethazine HCl 12.5 mg/ 50.5 mls @ 202 mls/hr 03/16/21 14:36 Sodium Chloride IV ONCE PRN Nausea and Vomiting Insulin Glargine 20 unit 03/15/21 01:50 03/16/21 21:52 Insulin Glargine,Hum.Rec.Anlog 100 Unit/Ml 10 Ml Vial SUBCUT 20 unit BEDTIME [facility] Administration Insulin Human Lispro 0 unit 03/15/21 07:30 03/17/21 07:36 Insulin Lispro 100 Unit/Ml 3 Ml Vial SUBCUT Not Given QIDACHS [facility] Protocol Lisinopril 20 mg 03/15/21 09:00 03/17/21 07:25 Lisinopril 20 Mg Tablet PO 20 mg DAILY [facility] Administration Protocol Omeprazole 20 mg 03/17/21 10:00 03/17/21 09:47 Omeprazole 20 Mg Capsule. PO 20 mg DAILY@0630 [facility] Administration Ondansetron HCl 4 mg 03/15/21 01:50 03/17/21 07:43 Ondansetron Hcl 4 Mg/2 Ml Vial IVPUSH 4 mg Q8H PRN Administration Nausea and Vomiting Ondansetron HCl 4 mg 03/16/21 14:36 Ondansetron Hcl 4 Mg/2 Ml Vial IVPUSH ONCE PRN Nausea and Vomiting Oxycodone HCl 5 mg 03/15/21 01:50 03/17/21 08:58 Oxycodone Hcl Immed Release 5 Mg Tablet PO 5 mg Q6H PRN Administration Pain, Severe (Pain Scale 7-10) Oxycodone HCl 10 mg 03/16/21 14:36 Oxycodone Hcl Immed Release 5 Mg Tablet PO ONCE PRN Pain, Severe (Pain Scale 7-10) Pharmacy Consult 1 each 03/15/21 01:50 Consult Rx Vancomycin Dosing MISCELLANE DAILY PRN Consult order Sodium Chloride 3 ml 03/15/21 01:50 03/17/21 07:37 0.9 % Sodium Chloride Flush 3 Ml Syringe IVFLUSH 3 ml QSHIFT SKYLER Administration Vitamin D 50 mcg 03/15/21 09:00 03/17/21 07:25 Cholecalciferol (Vitamin D3) 25 Mcg Tablet PO 50 mcg DAILY SKYLER Administration Time Spent With Patient Time: Total time spent is greater than 50% in coordination of care (as documented) at patient's floor/unit and/or counseling patient: Time with patient: less than 15 minutes Procedures Date of Service Date of Service: 03/17/21 Quality Stroke Does the patient have a stroke diagnosis?: No VTE Prior VTE?: No VTE Risk Level:: Medical - moderate - high VTE Device Contraindication: Treatment Not Indicated VTE Drug Contraindication: N/A - Med Ordered
--- NOTE | 2021-03-17 12:09 | HO.MIDLINE ---
PICC Line Insertion MIDLINE INSERTION Diagnosis: RIGHT ANKLE WOUND/CELLULITIS Indication: NURSING HOME IV ANTIBIOTICS Pertinent Labs: REVIEWED Technique: Using sterile technique including cap and mask, glove and drape, the LEFT arm was prepped and draped in the usual sterile fashion of full barrier technique with CHG. Using ultrasound guidance, BASILIC vein access was obtained IN SINGLE ATTEMPT BY THIS RN. A SINGLE LUMEN, NON-PASV, (20G x 8CM) MIDLINE was positioned. The procedure was performed in [facility]. Ultrasound was used to document vein patency and for needle entry. A formal ultrasound picture was recorded. Vascular Customer Service Receptionist has released the line for use and it is currently dressed with a StatLock, Tegaderm, and CHG disc. Verification has been performed for blood return and line patency. Arm Circumference: 29.5 CM Equipment: [employer] POWERGLIDE PRO MIDLINE Catheter Type: SINGLE LUMEN, NON-PASV, (20G x 8CM) Lot #: [id number]
--- NOTE | 2021-03-17 12:10 | P.PNIM_ITS ---
Subjective Subjective Date of Service: 03/17/21 Interval History: seen and examined this morning, follow-up for right ankle osteomyelitis s/p debridement of wound yesterday still reporting some nausea, some pain at site of wound Physical Exam Vital Signs: Vital Signs: Last Vital Signs Temp 97.9 F 03/17/21 07:07 Pulse 82 03/17/21 09:48 Resp 16 03/17/21 07:07 BP 182/98 H 03/17/21 09:48 Pulse Ox 98 03/17/21 07:07 Body Mass Index 20.9 Const: General: comfortable, no acute distress, alert and awake Nutritional Appearance: well nourished Orientation/consciousness: patient oriented x3 HENMT: Head: Yes normocephalic and Yes atraumatic Eyes: Sclerae: sclerae normal Resp: Effort & Inspection: normal respiratory effort and no respiratory distress Auscultation: clear to auscultation bilaterally Cardio: Rate: regular rate Rhythm: regular rhythm GI: Palpation (GI): Soft to palpation and nontender Skin: Other: ulcer over right malleolus, shallow with mild surrounding erythema, no drainage Neuro: General: patient oriented x3 Cranial nerves: Yes CN's II-XII intact bilaterally and Yes Bilaterally intact EOM present Objective Data Current Medications Generic Name Dose Route Start Last Admin Trade Name Freq PRN Reason Stop Dose Admin Acetaminophen 650 mg 03/15/21 01:50 03/15/21 14:55 Acetaminophen 325 Mg Tablet PO 650 mg Q6H PRN Administration Pain, Mild (Pain Scale 1-3) Al Hydroxide/Mg Hydroxide 15 ml 03/15/21 20:46 03/17/21 07:43 Magnesium Hydrox/Alum Hydrox 30 Ml Oral.Susp PO 15 ml Q4H PRN Administration Chest Pain Collagenase 1 appl 03/15/21 15:00 03/17/21 07:37 Collagenase Clostridium Hist. 30 Gm Tube TOPICAL 1 appl DAILY SKYLER Administration Protocol Enoxaparin Sodium 40 mg 03/15/21 01:50 03/17/21 01:49 Enoxaparin Sodium 40 Mg/0.4 Ml Syringe SUBCUT 40 mg Q24H SKYLER Administration Fentanyl 50 mcg 03/16/21 14:36 Fentanyl Citrate/Pf 100 Mcg/2 Ml Vial IVPUSH Q5M PRN Pain, Severe (Pain Scale 7-10) Promethazine HCl 12.5 mg/ 50.5 mls @ 202 mls/hr 03/16/21 14:36 Sodium Chloride IV ONCE PRN Nausea and Vomiting Ertapenem 1 gm/ Sodium 50 mls @ 100 mls/hr 03/17/21 11:54 Chloride IV 03/17/21 12:23 ONCE ONE Insulin Glargine 20 unit 03/15/21 01:50 03/16/21 21:52 Insulin Glargine,Hum.Rec.Anlog 100 Unit/Ml 10 Ml Vial SUBCUT 20 unit BEDTIME [facility] Administration Insulin Human Lispro 0 unit 03/15/21 07:30 03/17/21 07:36 Insulin Lispro 100 Unit/Ml 3 Ml Vial SUBCUT Not Given QIDACHS [facility] Protocol Lisinopril 30 mg 03/18/21 09:00 Lisinopril 10 Mg Tablet PO DAILY [facility] Protocol Omeprazole 20 mg 03/17/21 10:00 03/17/21 09:47 Omeprazole 20 Mg Capsule.Dr PO 20 mg DAILY@0630 [facility] Administration Ondansetron HCl 4 mg 03/15/21 01:50 03/17/21 07:43 Ondansetron Hcl 4 Mg/2 Ml Vial IVPUSH 4 mg Q8H PRN Administration Nausea and Vomiting Ondansetron HCl 4 mg 03/16/21 14:36 Ondansetron Hcl 4 Mg/2 Ml Vial IVPUSH ONCE PRN Nausea and Vomiting Oxycodone HCl 5 mg 03/15/21 01:50 03/17/21 08:58 Oxycodone Hcl Immed Release 5 Mg Tablet PO 5 mg Q6H PRN Administration Pain, Severe (Pain Scale 7-10) Oxycodone HCl 10 mg 03/16/21 14:36 Oxycodone Hcl Immed Release 5 Mg Tablet PO ONCE PRN Pain, Severe (Pain Scale 7-10) Pharmacy Consult 1 each 03/15/21 01:50 Consult Rx Vancomycin Dosing MISCELLANE DAILY PRN Consult order Sodium Chloride 3 ml 03/15/21 01:50 03/17/21 07:37 0.9 % Sodium Chloride Flush 3 Ml Syringe IVFLUSH 3 ml QSHIFT [facility] Administration Vitamin D 50 mcg 03/15/21 09:00 03/17/21 07:25 Cholecalciferol (Vitamin D3) 25 Mcg Tablet PO 50 mcg DAILY [facility] Administration Labs CBC & Chem 7: 03/16/21 07:20 03/17/21 05:55 Labs: Laboratory Results - last 24 hr 03/16/21 03/16/21 03/16/21 12:05 14:10 16:17 Sodium Potassium Chloride Carbon Dioxide Anion Gap BUN Creatinine Estim Creat Clear Calc Estimated GFR POC Glucose 197 H 220 H 219 H Random Glucose Calcium 03/16/21 03/17/21 03/17/21 20:27 05:55 07:12 Sodium 138 Potassium 4.1 Chloride 104 Carbon Dioxide 29 Anion Gap 9 L BUN 23 H Creatinine 1.35 Estim Creat Clear Calc 74.7 Estimated GFR 58 POC Glucose 328 H 181 H Random Glucose 193 H Calcium 8.0 L Microbiology Microbiology Results: Microbiology 03/14/21 20:05 Blood Culture - Preliminary Blood - Venous No growth after 48 hours. 03/14/21 19:03 Blood Culture - Preliminary Blood - Venous No growth after 48 hours. Quality Stroke Does the patient have a stroke diagnosis?: No VTE Prior VTE?: No VTE Risk Level:: Medical - moderate - high VTE Device Contraindication: Treatment Not Indicated VTE Drug Contraindication: N/A - Med Ordered Assessment and Plan (1) Cellulitis: Status: Acute Assessment and Plan: 40-year-old male with past medical history of diabetes who presents to the hospital with complaints of nonhealing right ankle wound Right lower extremity wound / cellulitis Hx of diabetes, non healing foot wound after injury Elevated ESR, MRI showing possible early osteomyelitis - seen by ID, recommend 6 weeks IV antibiotics - s/p wound debridement 03/16, Patient will start Aquacel dressings to the wound starting tomorrow and the Aquacel will need to be changed every other day per surgery; should follow up in wound care clinic - blood cultures negative x 48 hours - midline placement today, plan to go home with 6 weeks of Invanz - will stop vanc/zosyn and given first dose of invanz today hypertension. blood pressure still elevated. has been on multiple antihypertensives in the past with side effects -will increase dose of lisinopril - monitor blood pressure closely chest pain EKG nonischemic. Troponin neg. no discomfort with ambulation chest x-ray unremarkable. CARLOS. Creatinine seems to be at baseline. - follow BMP Diabetes. usually does carb counting had an episode of hypoglycemia yesterday -decreased sliding scale - follow blood sugar closely DVT prophylaxis with Lovenox Attending: Dr. Arita full code dispo: unable to arrange VNA/outpatient abx today, likely d/c tomorrow
[2021-03-17 12:25] LABS: Glucose, Whole Blood 244 mg/dL (60-115)
[2021-03-17] MEDS: Insulin Lispro 100 UNIT/ML 3 ML VIAL SUBCUT ×2 (12:45→16:43)
[2021-03-17] MEDS: Ertapenem Sodium 1 GM in 0.9 % Sodium Chloride 50 ML IV (12:45)
--- NOTE | 2021-03-17 12:57 | HO.POSTANES ---
Post Anesthesia Evaluation Post Anesthesia Evaluation Vital Signs: Vital Signs Temp Pulse Resp BP Pulse Ox 03/17/21 09:48 82 182/98 H 03/17/21 07:25 74 174/96 H 03/17/21 07:07 97.9 F 74 16 191/99 H 98 Anesthesia: Monitored Mental Status: Awake Pain Control: Satisfactory Nausea/Vomiting: None Hydration: Adequate Anesthesia-Related Issues: No Anes. Related Issues
[2021-03-17] MEDS: hydrALAZINE HCl 10 MG TABLET PO ×2 (13:25→20:11)
[2021-03-17 16:15] LABS: Glucose, Whole Blood 204 mg/dL (60-115)
[2021-03-17 20:05] LABS: Glucose, Whole Blood 169 mg/dL (60-115)
[2021-03-17] MEDS: Insulin Glargine,Hum.rec.anlog 100 UNIT/ML 10 ML VIAL 20 UNIT SUBCUT (20:10)
[2021-03-18] VITALS (12 sets, daily range): BP systolic 142–199; BP diastolic 77–108; PULSE 83–89; RESP 18; TEMP 36.3–36.9; O2SAT 96–97
[2021-03-18] MEDS: hydrALAZINE HCl 20 MG/ML VIAL 5 MG IVPUSH (00:55)
[2021-03-18] MEDS: Enoxaparin Sodium 40 MG/0.4 ML SYRINGE SUBCUT (02:06)
[2021-03-18] MEDS: diphenhydrAMINE HCL 25 MG TABLET 50 MG PO (02:06)
[2021-03-18] MEDS: Nitroglycerin 0.1 MG PATCH.TD24 TRANSDERMA (04:09)
--- NOTE | 2021-03-18 04:59 | PC.NURSE ---
03/17/21 2345 bp-194/86 p-86. notified ordered hydralazine 5mg iv x 1.given at 0100.bp after 1 hr still elevated.195/108. notified.ordered nitro patch 0.1mg/hr and another dose of hydralazine 5mg which was held because repeat bp 159/77.
[2021-03-18] MEDS: Omeprazole 20 MG CAPSULE.DR PO (05:56)
[2021-03-18 07:29] LABS: Glucose, Whole Blood 80 mg/dL (60-115)
[2021-03-18] MEDS: hydrALAZINE HCl 10 MG TABLET PO (08:53)
[2021-03-18] MEDS: Cholecalciferol (Vitamin D3) 25 MCG TABLET 50 MCG PO (08:53)
[2021-03-18] MEDS: 0.9 % Sodium Chloride Flush 3 ML SYRINGE IVFLUSH (08:54)
[2021-03-18] MEDS: Collagenase Clostridium Hist. 30 GM TUBE 1 APPL TOPICAL (08:54)
[2021-03-18] MEDS: lisinopriL 10 MG TABLET 30 MG PO (08:54)
[2021-03-18] MEDS: Acetaminophen 325 MG TABLET 650 MG PO (09:00)
--- NOTE | 2021-03-18 09:56 | MHC.CM.NN ---
PT DISCHARGEING TODAY AFTER DOSE OF IV ERTAPENEM, PT WILL D/C W/[facility] AND [facility] FOR [facility], PER [facility] LIAISON ANTIBIOTIC WILL BE DELIVERED BY END OF DAY TODAY, PT INSTRUCTED TO RETURN TO ED IF MED IS NOT DELIVERED, PT TO ARRANGE TRANSPORTATION HOME.
--- NOTE | 2021-03-18 09:57 | PM.DS ---
DS: Providers Provider Date of Service: 03/18/21 Date of admission: 03/14/21 23:30 Primary care physician: Mary Beth Nix MD Consults: 03/15/21 08:18 Consult to Infectious Diseases Routine Consulting Provider: June White Reason for consultation: right foot cellulitis ? osteo Has provider been notified: No 03/15/21 09:15 Consult to General Surgery Routine Consulting Provider: Theo Reece Reason for consultation: ? debridement ankle wound Has provider been notified: No DS: Diagnosis Discharge Diagnosis (1) Osteomyelitis of right ankle: Status: Acute (2) Hypertension: Status: Acute (3) Cellulitis: Status: Acute (4) CARLOS (acute kidney injury): Status: Acute (5) Diabetes type 1, uncontrolled: Status: Acute DS: Medications Discharge Medications Home Medications: Home Medications Medication Instructions Recorded Confirmed lisinopril 20 mg tablet 20 mg PO DAILY 07/12/20 03/14/21 pen needle, diabetic 32 gauge x #50 ea 07/12/20 07/12/20 insulin glargine [Lantus Solostar 20 unit SUBCUT BEDTIME 03/14/21 03/14/21 U-100 Insulin] Previous Rx's Medication Instructions Recorded insulin lispro 100 unit/mL See Rx Instructions SUBCUT 06/18/20 subcutaneous pen .COMPLEX 30 Days #15 ml cholecalciferol (vitamin D3) 50 50 mcg PO DAILY #30 cap 09/15/ mcg (2,000 unit) capsule BD Marge 2nd Gen Pen Needle 32 #150 ea NS 03/14/21 gauge x / oxycodone 5 mg PO BID PRN #7 tab 03/18/21 DS: Summary Hospital Course Hospital Course: From H&P on day of admission this is a 40-year-old male with past medical history of diabetes as well as hypertension who presents hospital after an nonhealing right malleolus wound. Patient reports that about 4 weeks ago he was playing with his kids, so had a fall, scraped his right ankle, and did not think much of it until about 3 days ago on Sunday where he noticed that there was swelling as well as pain while working out. patient reports that although he has some neuropathy in his feet he does feel pain. He reports that he called his PCP and was asked to come to urgent care and urgent care sent him to the ED. He denies any fever but feels chills, denies any abdominal pain nausea or vomiting, no chest pain, no shortness of breath, no cough, no diarrhea constipation, no headache or change in vision, no dizziness, no urinary symptoms and otherwise no lower extremity edema except in his left foot. On arrival to the ED patient hemodynamically stable with no significant abnormal vitals Labs are significant for WBC count of 9.3, hemoglobin of 13.2, BUN of 19, creatinine of 1.77 from a baseline of around 0.8, ankle x-ray shows skin ulceration was soft tissue swelling at the lateral malleolus with no acute osseous abnormality. No radiographic evidence of osteomyelitis osteomyelitis. The patient was admitted for nonhealing right ankle wound / cellulitis. He underwent MRI which showed evidence of early osteomyelitis. He was seen by General surgery and had wound debridement 03/16. He was evaluated by Infectious Diseases who recommended 6 weeks of IV antibiotics. Blood cultures remained negative. He had midline placed March 17. He will be discharged with 6 weeks of IV ertapenem, with end date 04/28. Will need Aquacel dressing changes every other day. He will be discharged home with VNA assistance with wound care and antibiotic infusion. He should call to schedule follow-up appointment in [facility] wound clinic. He should schedule follow up appointment with Dr. White. HTN. pressure was noted to be elevated. Takes only lisinopril at baseline. He has been trialed on multiple medications as an outpatient and has had side effects preventing their continued use. Lisinopril dose was increased from 20 to 30 mg daily. Although he remained asymptomatic his blood pressure continued to be elevated and therefore hydralazine was started. His blood pressure has improved somewhat but is still not under optimal control. Hydralazine can be titrated as an outpatient as needed. Patient should call to schedule follow-up appointment with PCP for close blood pressure monitoring. Time Spent with Patient Time attestation: Total time spent providing and/or coordinating discharge services: Discharge coordination time: Greater than 30 minutes Quality: Stroke Does the patient have a stroke diagnosis?: No Physical Exam Vital Signs: Vital Signs: Last Vital Signs Temp 97.4 F 03/18/21 07:21 Pulse 89 03/18/21 08:54 Resp 18 03/18/21 07:21 BP 155/89 H 03/18/21 08:54 Pulse Ox 97 03/18/21 07:21 Body Mass Index 20.9 Const: General: comfortable, no acute distress, alert and awake Nutritional Appearance: well nourished Orientation/consciousness: patient oriented x3 HENMT: Head: Yes normocephalic and Yes atraumatic Eyes: Sclerae: sclerae normal Resp: Effort & Inspection: normal respiratory effort and no respiratory distress Cardio: Rate: regular rate Rhythm: regular rhythm GI: Palpation (GI): Soft to palpation and nontender Skin: Other: right ankle wrapped in clean, dry, intact dressing Neuro: General: patient oriented x3 Cranial nerves: Yes CN's II-XII intact bilaterally and Yes Bilaterally intact EOM present DS: Data Data Completed and Pending Pending studies at discharge: Pending at discharge 03/16/21 15:07 Surgical [PTH] Routine Labs on day of discharge: Laboratory Results - last 24 hr 03/17/21 03/17/21 03/17/21 12:12 16:12 20:02 POC Glucose 244 H 204 H 169 H 03/18/21 07:23 POC Glucose 80 Preliminary micro results at discharge 03/14/21 20:05 Blood Culture - Preliminary Blood - Venous No growth after 48 hours. 03/14/21 19:03 Blood Culture - Preliminary Blood - Venous No growth after 48 hours. Discharge Plan Discharge Patient Disposition: Home Health Service Discharge Diagnosis: Osteomyelitis of right ankle Uncontrolled HTN Diabetes Referrals: [facility] [Other] - 1 Day (HOME DELIVERY FOR ABX) [facility] [Outside] - 1 Day (IV ABX AND RIGHT FOOT WOUND ) Mary Beth Nix MD [Primary Care Provider] - 1 Week June White MD [Physician] - 1 Month Cora Vasquez MD [Physician] - 1 Week Discharge Medications: New oxycodone 5 mg Tablet 5 mg PO BID PRN (Reason: Pain, Severe (Pain Scale 7-10)) Qty: 7 RF: 0 omeprazole 20 mg Capsule,Delayed Release(Dr/Ec) 20 mg PO DAILY@0630 30 Days Qty: 30 RF: 0 lisinopril 30 mg tablet 30 mg PO DAILY 30 Days Qty: 30 RF: 0 hydralazine 25 mg tablet 25 mg PO TID 30 Days Qty: 90 RF: 0 Continued insulin lispro [Humalog KwikPen Insulin] 100 unit/mL insulin pen See Rx Instructions subcut .COMPLEX 30 Days Qty: 15 RF: 4 cholecalciferol (vitamin D3) 50 mcg (2,000 unit) capsule 50 mcg PO DAILY Qty: 30 RF: 3 (DME) pen needle, diabetic [BD Marge 2nd Gen Pen Needle] 32 gauge x 5/32 needle See Rx Instructions .MEDSUPPLY Qty: 150 RF: 1 Lantus Solostar U-100 Insulin 100 unit/mL (3 mL) insulin pen 20 unit subcut BEDTIME RF: 0 (DME) pen needle, diabetic 32 gauge x 5/32 needle See Rx Instructions ea subcut .MEDSUPPLY Qty: 50 RF: 0 Discontinued lisinopril 20 mg tablet 20 mg PO DAILY RF: 0 Discharge Orders: Discharge Order (Routine); Ordered 03/18/21 Ordered By: Roya Ley Diet: advance to usual diet Activity on Discharge: As tolerated Stand Alone Forms: Patient Portal Discharge page Care Plan Goals: treatment/Resolution of osteomyelitis better management of hypertension Health Concerns: non healing right foot ulcer/ osteomyelitis uncontrolled hypertension Plan of Treatment: You have been started antibiotics osteomyelitis. This is dosed once daily for 6 weeks. Call to schedule follow-up appointment with Dr. White. Call to schedule an appointment at the [facility]. For wound: Aquacel dressings to the wound changed every other day, you will have VNA for assistance in wound care. HTN. your blood pressure medication has been adjusted. Please call to schedule a follow-up appointment with your PCP for close blood pressure monitoring. Assessment: see discharge summary Discharge Date/Time: 03/18/21 11:42
--- NOTE | 2021-03-18 10:27 | W.MHC.F2F ---
Service Date Service Date: 03/18/21 Encounter Date of encounter: 03/18/21 Reasons for Services Reason for [facility]: wound care, administration of IV, SQ, or IM injection and other (Blood pressure monitoring) MD Overseeing Care: Mary Beth Nix Homebound: Leaving the home is medically contraindicated at this time without the asist of a device and/or another person due th the listed conditions above and below. Reason homebound: weakness related to hospital stay Certification: Based on the above findings, I certify that this patient is confined to the home and needs intermittent [facility] care, physical therapy and/or speech therapy, or continues to need occupational therapy. The patient is under my care, and I have initiated the establishment of the plan of care. The patient will be followed by a physician who will periodically review the plan of care.
[2021-03-18] MEDS: Ertapenem Sodium 1 GM in 0.9 % Sodium Chloride 50 ML IV (10:29)
[2021-03-18] MEDS: hydrALAZINE HCl 25 MG TABLET PO (10:29)
--- NOTE | 2021-03-18 11:11 | MHC.CM.PN ---
PT DISCHARGEING TODAY AFTER DOSE OF IV ERTAPENEM, PT WILL D/C W/[facility] AND [facility] FOR [facility], PER [facility] LIAISON ANTIBIOTIC WILL BE DELIVERED BY END OF DAY TODAY, PT INSTRUCTED TO RETURN TO ED IF MED IS NOT DELIVERED, PT TO ARRANGE TRANSPORTATION HOME. PT WILL BE ON IV ERTAPENEM 1GM X 6WKS MINUS 2 DOSES HE RECEIVED INPT.
== END 2021-03-18 11:42 | disposition home health service (06) | DRG 384 ==
LOC: HO.ED 21:23 → HO.EDOVER 03-15 00:02 → HO.S3 03-15 00:16
PROVIDERS: Nurse Practitioner Acute Care; Physician Assistant Medical; Surgery; Admitting Provider Internal Medicine; Emergency Provider Internal Medicine; PCP Internal Medicine; Visit Provider Family Medicine
PROC: 0JBQ0ZZ Excision of Right Foot Subcutaneous Tissue and Fascia, Open Approach (ICD-10-PCS; principal; 2021-03-16 14:20)
DX: S91.011A Laceration without foreign body, right ankle, initial encounter (principal); N17.9 Acute kidney failure, unspecified; L03.115 Cellulitis of right lower limb; E11.69 Type 2 diabetes mellitus with other specified complication; E11.42 Type 2 diabetes mellitus with diabetic polyneuropathy; I10 Essential (primary) hypertension; W01.119A Fall on same level from slipping, tripping and stumbling with subsequent striking against unspecified sharp object, initial encounter; Y93.89 Activity, other specified; Y92.9 Unspecified place or not applicable; Y99.9 Unspecified external cause status; M86.9 Osteomyelitis, unspecified; Z20.822 Contact with and (suspected) exposure to COVID-19; Z79.4 Long term (current) use of insulin; Z87.891 Personal history of nicotine dependence; Z79.899 Other long term (current) drug therapy
CPT/HCPCS: 36410; 36415; 71046; 73610; 73723; 80048; 80202; 82947; 83605; 84484; 85025; 85027; 85610; 85652; 86140; 87040; 87635; 88305; 93005; 99024; 99285; A9585; J1335; J1642; J1650; J2060; J2250; J2270; J2405; J2543; J3370; Q0163

== ENCOUNTER 2021-03-21 14:09 | Emergency (ER) | payer OTHER, SELFPAY ==
--- NOTE | 2021-03-21 14:46 | ED.GENADULT ---
HPI - General Adult General Chief complaint: General Medical Stated complaint: MIDLINE NOT WORKING Time Seen by Provider: 03/21/21 14:16 Source: patient Mode of arrival: ambulatory Limitations: no limitations History of Present Illness HPI narrative: 40-year-old male who has been treated for right ankle osteomyelitis with IV antibiotics, patient had in left brachial vein midline, nurse was not able to flush the line and was sent to the ED for further evaluation. Related Data Home Medications Medication Instructions Recorded Confirmed pen needle, diabetic 32 gauge x #50 ea 07/12/20 07/12/20 Lantus Solostar U-100 Insulin 20 unit SUBCUT BEDTIME 03/14/21 03/14/21 Previous Rx's Medication Instructions Recorded insulin lispro 100 unit/mL See Rx Instructions SUBCUT 06/18/20 subcutaneous pen .COMPLEX 30 Days #15 ml cholecalciferol (vitamin D3) 50 50 mcg PO DAILY #30 cap 09/15/20 mcg (2,000 unit) capsule BD Marge 2nd Gen Pen Needle 32 #150 ea NS 03/14/21 gauge x hydralazine 25 mg PO TID 30 Days #90 tab 03/18/21 lisinopril 30 mg PO DAILY 30 Days #30 tab 03/18/21 omeprazole 20 mg PO DAILY@0630 30 Days #30 cap 03/18/21 oxycodone 5 mg PO BID PRN #7 tab 03/18/21 Allergies Allergy/AdvReac Type Severity Reaction Status Date / Time No Known Allergies Allergy Verified 03/14/21 13:42 Review of Systems Review of Systems: All other systems are reviewed and are negative Constitutional: Reports as per HPI and Reports no additional constitutional complaints Eyes: Reports as per HPI and Reports no additional eye complaints Reports system reviewed and no additional complaints, except as documented Cardiovascular: Reports as per HPI and Reports no additional cardiovascular complaints Respiratory: Reports as per HPI and Reports no additional respiratory complaints Gastrointestinal: Reports as per HPI and Reports no additional gastrointestinal complaints Genitourinary: Reports no additional female genitourinary complaints Musculoskeletal: Reports no additional musculoskeletal complaints Skin/Breast: Reports system reviewed and no additional complaints, except as docu Psychiatric: Reports no additional psychiatric complaints Endocrine: Reports no additional endocrine complaints Hematologic/Lymphatic: Reports no additional hematologic/lymphatic complaints Allergic/Immunologic: Reports no additional allergic/immunologic complaints Reports system reviewed and no additional complaints, except as documented and Reports Abnormal speech present [facility] Past Medical History Medical History COVID-19 vaccine administered Diabetes type 1, uncontrolled Diabetic nephropathy associated with type 1 diabetes mellitus Diabetic neuropathy associated with type 1 diabetes mellitus Diabetic retinopathy associated with type 1 diabetes mellitus Dyslipidemia Hypertension Low TSH level Vitamin D deficiency Surgical History History of left inguinal hernia repair History of torsion of testis Status post repair of arteriovenous fistula Status post right foot surgery Family History Family History Father Diabetes mellitus Mother Alzheimer disease Brother Diabetes mellitus Non-Hodgkin lymphoma in child Sister Breast cancer, stage 0 Sister No problems noted. Sister No problems noted. Sister No problems noted. Sister No problems noted. Sister No problems noted. Sister No problems noted. Social History Social History Household Members: Children Housing: Apartment Do you presently have visiting nurse or other home services: No Alcohol intake: current Alcohol intake frequency: a few times a month Patient Tobacco Use Status: Former Tobacco user Quit Date: >10 yrs ago Years Smoked: 7 e-Cigarette/Vaping Use: Never Used Use of substances other than those prescribed or required for medical reasons: No Advance Directives: Yes Advance Directives Information Provided: No Advance Directives on File: No service: No Current occupational status: employed Physical Exam Vital Signs: Vital Signs: Last Vital Signs Temp 98.2 F 03/21/21 15:35 Pulse 80 03/21/21 15:35 Resp 18 03/21/21 15:35 BP 167/59 H 03/21/21 15:35 Pulse Ox 98 03/21/21 15:35 Body Mass Index 21.2 vital signs have been reviewed as appeared to be correct. Blood pressure normal. Heart rate normal. Respiration rate normal. Temperature normal. Oxygen saturation normal. Appearance: Alert. Oriented X3. No acute distress. Head: Normal external exam. Normocephalic. Atraumatic. No Mendoza signs noted. No raccoon eyes noted Eyes: PERRLA. EOMI. Conjunctiva and sclera normal. Eyelids normal. ENT: TM's Normal. Pharynx normal. Uvula midline. Moist mucous membranes. No trismus noted. No drooling noted. No muffled voice noted. Neck: Normal inspection. Neck supple. FROM. No adenopathy. Thyroid Normal. No meningeal signs. No neck mass noted. CVS: Normal heart rate and rhythm. Heart sound normal. No murmurs noted. Pulses normal throughout. Respiratory: No respiratory distress. Painless inspiration. Breath sounds normal. No wheezes/rales/rhonchi noted. Chest nontender. No accessory muscle usage noted or decreased air movement noted. Abdomen: Soft and nontender. Bowel sounds normal in all 4 quadrants. No distention noted. No organomegaly noted. No visible injury noted. Back: No CVA tenderness. Full range of motion noted. Skin: Skin warm and dry. Normal skin color. Normal skin turgor. No rashes/lesions/lacerations noted. Extremities: No lower extremity edema. Extremities exhibit normal range of motion. Extremities nontender. left arm midline is in place. But not functioning Neuro: Oriented X 3. No motor deficit. No sensory deficit. Reflexes normal. Course Course Course Narrative: assessment and plan. [age] years with multiple comorbidity has chronic right ankle osteomyelitis, patient has been hospitalized and had infectious disease consultation by Dr. Cindy Watkins who recommended the patient to be on IV ertapenem for 6 weeks, patient has a visiting nurse and midline Venous access placed for IV antibiotic administration at home. Because midline access malfunction patient come to the ED today, and received 1 dose of antibiotic via peripheral IV, attempt to place PICC line versus replacing the midline was not successful because it was a holiday and there is no IR coverage during the weekend /holidays. they will be able to replace it tomorrow. Patient was instructed to come back for placing PICC line tomorrow. Discharge Plan Discharge Clinical Impression: Occluded PICC line Qualifiers: Encounter type: initial encounter Qualified Code(s): T82.898A - Other specified complication of vascular prosthetic devices, implants and grafts, initial encounter Patient Disposition: Home, Self-Care Instructions: How to Care for Your PICC (Peripherally Inserted Central Catheter) (ED) Additional Instructions: come back tomorrow for placing a PICC line Prescriptions: No Action insulin lispro [Humalog KwikPen Insulin] 100 unit/mL insulin pen See Rx Instructions subcut .COMPLEX 30 Days Qty: 15 RF: 4 cholecalciferol (vitamin D3) 50 mcg (2,000 unit) capsule 50 mcg PO DAILY Qty: 30 RF: 3 (DME) pen needle, diabetic [BD Marge 2nd Gen Pen Needle] 32 gauge x 5/32 needle See Rx Instructions .MEDSUPPLY Qty: 150 RF: 1 Lantus Solostar U-100 Insulin 100 unit/mL (3 mL) insulin pen 20 unit subcut BEDTIME RF: 0 oxycodone 5 mg Tablet 5 mg PO BID PRN (Reason: Pain, Severe (Pain Scale 7-10)) Qty: 7 RF: 0 omeprazole 20 mg Capsule,Delayed Release(Dr/Ec) 20 mg PO DAILY@0630 30 Days Qty: 30 RF: 0 lisinopril 30 mg tablet 30 mg PO DAILY 30 Days Qty: 30 RF: 0 hydralazine 25 mg tablet 25 mg PO TID 30 Days Qty: 90 RF: 0 (DME) pen needle, diabetic 32 gauge x 5/32 needle See Rx Instructions ea subcut .MEDSUPPLY Qty: 50 RF: 0 Referrals: Mary Beth Nix MD [Primary Care Provider] - 2 days
[2021-03-21 15:35] VITALS: BP 167/59; PULSE 80; RESP 18; TEMP 36.8; O2SAT 98; BMI 21.2
--- NOTE | 2021-03-21 15:57 | PC.NURSE ---
Pt resting in bed in NAD. Awaiting approval from radiologist on special procedure.
[2021-03-21] MEDS: Ertapenem Sodium 1 GM in 0.9 % Sodium Chloride 50 ML IV (17:07)
--- NOTE | 2021-03-21 17:09 | PC.NURSE ---
Peripheral angio inserted to LL arm. Ertapenem ordered/infusing.
[2021-03-22] MEDS: Lidocaine HCl 1 % MPF 5 ML VIAL SUBCUT (15:46)
== END 2021-03-21 18:40 | disposition home or self-care (01) ==
PROVIDERS: Emergency Provider Emergency Medicine; PCP Internal Medicine
DX: T82.898A Other specified complication of vascular prosthetic devices, implants and grafts, initial encounter (principal); M86.671 Other chronic osteomyelitis, right ankle and foot; E10.40 Type 1 diabetes mellitus with diabetic neuropathy, unspecified; Y84.8 Other medical procedures as the cause of abnormal reaction of the patient, or of later complication, without mention of misadventure at the time of the procedure; Y92.9 Unspecified place or not applicable; I10 Essential (primary) hypertension; Z79.4 Long term (current) use of insulin; Z79.899 Other long term (current) drug therapy
CPT/HCPCS: 96365; 99284; J1335

== ENCOUNTER 2021-03-22 13:54 | Outpatient (REF) | payer OTHER, SELFPAY ==
--- NOTE | ~2021-03-22 | IR_ITS ---
PROCEDURE: IR INSERTION OF PICC CLINICAL INFORMATION: Osteomyelitis. Long-term IV antibiotic requirement COMPARISON: None TECHNIQUE: Procedure and risks and benefits including bleeding, infection and blood clot were discussed with the patient, and informed consent was obtained. All elements of maximal sterile barrier technique followed including use of cap, mask, sterile gown, sterile gloves, a sterile full body drape and hand hygiene. Also followed skin preparation with 2% chlorhexidine for cutaneous antisepsis, and sterile ultrasound preparation with sterile gel and probe cover when applicable. The right upper arm was prepped and draped in the usual sterile fashion. The skin and soft tissues were anesthetized with 1% lidocaine plain. Using ultrasound guidance, right brachial vein access was obtained. Over an .018 wire and through a peel-away sheath, a 5-Nepalese single lumen PICC line was positioned. Catheter tip is in the SVC. Catheter length is 35 cm. Real-time ultrasound guidance was used to document vein patency and for needle entry. A formal ultrasound picture was recorded. Fluoroscopy time 0.2 minutes. DAP: 22 cGy-cm2. One saved fluoroscopic image. FINDINGS: There is a right upper extremity PICC line with tip projecting over the SVC. IR/IR cvc insert peripheral IMPRESSION: Right upper extremity PICC line placement.
--- NOTE | 2021-03-22 16:14 | HO.RADPN ---
RADIOLOGY Narrative Narrative: 5 Fr single lumen right upper extremity PICC line placed in right basilic vein. Tip in SVC. Catheter lngth 37 cm.
== END 2021-03-22 13:55 | disposition home or self-care (01) ==
LOC: HO.RADIR 13:54
PROVIDERS: PCP Internal Medicine; Visit Provider Emergency Medicine
DX: M86.9 Osteomyelitis, unspecified (principal)
CPT/HCPCS: 36573; C1751

== ENCOUNTER 2021-03-24 07:54 | Outpatient (RCR) | payer OTHER, SELFPAY | END 2021-05-20 12:17 | disposition home or self-care (01) | LOC: HO.WCC 07:54 | PROVIDERS: PCP Internal Medicine; Visit Provider Surgery | DX: E10.621 Type 1 diabetes mellitus with foot ulcer (principal); L97.316 Non-pressure chronic ulcer of right ankle with bone involvement without evidence of necrosis; E10.40 Type 1 diabetes mellitus with diabetic neuropathy, unspecified; Z87.891 Personal history of nicotine dependence | CPT/HCPCS: 11042; 15271; 15275; 99212; Q4186 ==

== ENCOUNTER 2021-03-25 | Outpatient (REF) | payer OTHER, SELFPAY ==
[2021-03-25 16:34] LABS: Eosinophils Absolute Auto 0.2 X10*3/uL (0.0-0.4); SCAN SMEAR FLAG 1
[2021-03-25 16:36] LABS: Basophils Percent Auto 0.4 % (0-2); Eosinophils Percent Auto 1.9 % (0-4); Hematocrit 35.2 % (42-52); Hemoglobin 11.9 g/dl (14.0-18.0); Imm Gran Abs Auto 0.03 X10*3/uL (0.00-0.03); Imm Gran Pct Auto 0.3 % (0.0-0.4); Lymphocytes Absolute Auto 1.9 X10*3/uL (1.2-4.9); Lymphocytes Percent Auto 18.8 % (20-40); Mean Corpuscular HGB Conc 33.8 g/dl (31.0-36.0); Mean Corpuscular Volume 91.7 fL (80-98); Monocytes Absolute Auto 1.1 X10*3/uL (0.1-1.2); Monocytes Percent Auto 11.4 % (2-11); Neutrophils Absolute Auto 6.7 X10*3/uL (2.0-8.3); Neutrophils Percent Auto 67.2 % (45-73); PLT ABN DIST 1; Platelet Count 273 X10*3/uL (160-400); Red Blood Count 3.84 X10*6/uL (4.60-5.80); Red Cell Distribution Width 11.8 % (11.0-16.0); White Blood Count 9.9 X10*3/uL (4.8-10.8)
[2021-03-25 16:37] LABS: MANUAL DIFF FLAG NO
[2021-03-25 17:03] LABS: Anion Gap 16 (12-20); Blood Urea Nitrogen 23 mg/dL (9-16); Calcium 8.7 mg/dL (8.4-10.2); Carbon Dioxide 29 mmol/L (22-29); Chloride 98 mmol/L (96-108); Estimated Glomerular Filt Rate > 60; Glucose Random 177 mg/dL (60-115); Potassium 4.7 mmol/L (3.3-5.1); Sodium 138 mmol/L (135-145)
== END 2021-03-25 00:01 | disposition home or self-care (01) ==
LOC: HO.HVNA
PROVIDERS: Internal Medicine; Visit Provider Internal Medicine
DX: M86.9 Osteomyelitis, unspecified (principal)
CPT/HCPCS: 80048; 85025

== ENCOUNTER 2021-04-01 12:40 | Outpatient (REF) | payer OTHER, SELFPAY ==
[2021-04-01 15:42] LABS: Hematocrit 32.9 % (42-52); Hemoglobin 11.2 g/dl (14.0-18.0); Mean Corpuscular Volume 91.1 fL (80-98); Mean Platelet Volume 12.8 fL (9.4-12.4); Platelet Count 350 X10*3/uL (160-400); Red Blood Count 3.61 X10*6/uL (4.60-5.80); Red Cell Distribution Width 11.6 % (11.0-16.0); White Blood Count 8.6 X10*3/uL (4.8-10.8)
[2021-04-01 16:23] LABS: Anion Gap 17 (12-20); Blood Urea Nitrogen 21 mg/dL (9-16); Calcium 8.2 mg/dL (8.4-10.2); Carbon Dioxide 26 mmol/L (22-29); Chloride 96 mmol/L (96-108); Estimated Glomerular Filt Rate 51; Glucose Random 458 mg/dL (60-115); Potassium 5.1 mmol/L (3.3-5.1); Sodium 134 mmol/L (135-145)
== END 2021-04-01 12:41 | disposition home or self-care (01) ==
LOC: HO.HMGCLNP 12:40
PROVIDERS: PCP Internal Medicine; Visit Provider Internal Medicine
DX: M86.9 Osteomyelitis, unspecified (principal)
CPT/HCPCS: 80048; 85027

== ENCOUNTER 2021-04-08 | Outpatient (REF) | payer OTHER, SELFPAY ==
[2021-04-08 16:40] LABS: Hematocrit 31.5 % (42-52); Hemoglobin 10.8 g/dl (14.0-18.0); Mean Corpuscular HGB Conc 34.3 g/dl (31.0-36.0); Mean Corpuscular Hemoglobin 30.6 pg (27.0-33.0); Mean Corpuscular Volume 89.2 fL (80-98); Mean Platelet Volume 12.7 fL (9.4-12.4); Platelet Count 304 X10*3/uL (160-400); Red Blood Count 3.53 X10*6/uL (4.60-5.80); Red Cell Distribution Width 11.4 % (11.0-16.0); White Blood Count 8.3 X10*3/uL (4.8-10.8)
[2021-04-08 18:34] LABS: Anion Gap 15 (12-20); Blood Urea Nitrogen 27 mg/dL (9-16); Calcium 8.5 mg/dL (8.4-10.2); Carbon Dioxide 24 mmol/L (22-29); Chloride 96 mmol/L (96-108); Estimated Glomerular Filt Rate > 60; Glucose Random 466 mg/dL (60-115); Potassium 4.7 mmol/L (3.3-5.1); Sodium 130 mmol/L (135-145)
== END 2021-04-08 00:01 | disposition home or self-care (01) ==
LOC: HO.HMGCLNP
PROVIDERS: Visit Provider Internal Medicine
DX: M86.9 Osteomyelitis, unspecified (principal)
CPT/HCPCS: 80048; 85027

== ENCOUNTER 2021-04-14 15:08 | Outpatient (REF) | payer OTHER, SELFPAY ==
[2021-04-14 16:38] LABS: Hematocrit 31.9 % (42-52); Hemoglobin 10.7 g/dl (14.0-18.0); Mean Corpuscular HGB Conc 33.5 g/dl (31.0-36.0); Mean Corpuscular Volume 89.4 fL (80-98); Mean Platelet Volume 12.6 fL (9.4-12.4); Platelet Count 263 X10*3/uL (160-400); Red Blood Count 3.57 X10*6/uL (4.60-5.80); Red Cell Distribution Width 11.6 % (11.0-16.0); White Blood Count 7.8 X10*3/uL (4.8-10.8)
[2021-04-14 16:56] LABS: Anion Gap 15 (12-20); Blood Urea Nitrogen 18 mg/dL (9-16); Calcium 9.2 mg/dL (8.4-10.2); Carbon Dioxide 27 mmol/L (22-29); Chloride 101 mmol/L (96-108); Estimated Glomerular Filt Rate > 60; Glucose Random 128 mg/dL (60-115); Potassium 4.8 mmol/L (3.3-5.1); Sodium 138 mmol/L (135-145)
== END 2021-04-14 15:09 | disposition home or self-care (01) ==
LOC: HO.HMGCLNP 15:08
PROVIDERS: Visit Provider Internal Medicine
DX: M86.9 Osteomyelitis, unspecified (principal)
CPT/HCPCS: 80048; 85027

== ENCOUNTER 2021-04-21 | Outpatient (REF) | payer OTHER, SELFPAY ==
[2021-04-21 13:58] LABS: Hematocrit 30.2 % (42-52); Hemoglobin 10.4 g/dl (14.0-18.0); Mean Corpuscular HGB Conc 34.4 g/dl (31.0-36.0); Mean Corpuscular Hemoglobin 30.4 pg (27.0-33.0); Mean Corpuscular Volume 88.3 fL (80-98); Mean Platelet Volume 12.9 fL (9.4-12.4); Platelet Count 215 X10*3/uL (160-400); Red Blood Count 3.42 X10*6/uL (4.60-5.80); Red Cell Distribution Width 11.5 % (11.0-16.0); White Blood Count 6.7 X10*3/uL (4.8-10.8)
[2021-04-21 14:24] LABS: Anion Gap 13 (12-20); Blood Urea Nitrogen 16 mg/dL (9-16); Calcium 8.6 mg/dL (8.4-10.2); Carbon Dioxide 25 mmol/L (22-29); Chloride 104 mmol/L (96-108); Estimated Glomerular Filt Rate > 60; Glucose Random 200 mg/dL (60-115); Potassium 4.4 mmol/L (3.3-5.1); Sodium 138 mmol/L (135-145)
== END 2021-04-21 00:01 | disposition home or self-care (01) ==
LOC: HO.HMGCLNP
PROVIDERS: Visit Provider Internal Medicine
DX: M86.9 Osteomyelitis, unspecified (principal)
CPT/HCPCS: 80048; 85027

== ENCOUNTER 2022-04-18 15:27 | Outpatient (REF) | payer MEDICAID, SELFPAY ==
[2022-04-18 15:56] LABS: MANUAL DIFF FLAG NO
[2022-04-18 16:47] LABS: Basophils Absolute Auto 0.1 X10*3/uL (0.0-0.2); Eosinophils Absolute Auto 0.3 X10*3/uL (0.0-0.4); Eosinophils Percent Auto 3.8 % (0-4); Hematocrit 31.1 % (42.0-52.0); Hemoglobin 10.1 g/dl (14.0-18.0); Imm Gran Abs Auto 0.02 X10*3/uL (0.00-0.03); Imm Gran Pct Auto 0.3 % (0.0-0.4); Lymphocytes Absolute Auto 1.4 X10*3/uL (1.2-4.9); Mean Corpuscular HGB Conc 32.5 g/dl (31.0-36.0); Mean Corpuscular Hemoglobin 29.6 pg (27.0-33.0); Mean Corpuscular Volume 91.2 fL (80.0-98.0); Mean Platelet Volume 10.8 fL (9.4-12.4); Monocytes Absolute Auto 0.8 X10*3/uL (0.1-1.2); Monocytes Percent Auto 12.1 % (2-11); Neutrophils Absolute Auto 4.3 x10*3/uL (2.0-8.3); Neutrophils Percent Auto 61.8 % (45-73); Platelet Count 433 X10*3/uL (160-400); Red Blood Count 3.41 X10*6/uL (4.60-5.80); White Blood Count 6.9 X10*3/uL (4.8-10.8)
[2022-04-18 16:52] LABS: Prothrombin Time 11.8 SEC (10.0-13.1)
[2022-04-18 17:17] LABS: Albumin Level 3.1 g/dL (3.5-5.0); Anion Gap 16 (12-20); Blood Urea Nitrogen 30 mg/dL (9-16); Calcium 8.6 mg/dL (8.4-10.2); Carbon Dioxide 30 mmol/L (22-29); Chloride 95 mmol/L (96-108); Estimated Glomerular Filt Rate 37; Iron 35 mcg/dL (45-160); Percent Iron Saturation 13 % (15-50); Phosphorus 4.6 mg/dL (2.7-4.5); Potassium 4.5 mmol/L (3.3-5.1); Sodium 136 mmol/L (135-145); Total Iron Binding Capacity 263 mcg/dL (228-428); Unsaturated Iron Binding 228 ug/dL
[2022-04-18 17:38] LABS: Ferritin 422 ng/mL (20-250); Vitamin D 25-OH Total 14.8 ng/mL (>30)
[2022-04-18 18:10] LABS: Appearance Urine CLEAR; Color Urine YELLOW; Glucose Urine UA >=1000 MG/DL (NEG); Leukocyte Esterase Urine NEG (NEG); Nitrite Urine NEG (NEG); Urine Blood TRACE (NEG); Urine Ketones NEG (NEG); Urine Protein 3+ MG/DL (NEG-TRACE)
[2022-04-18 18:17] LABS: Bacteria Urine TRACE /LPF; Squamous Epithelial Cell Urine TRACE /LPF; WBC Urine 0 /HPF (0-4)
[2022-04-18 19:27] LABS: Creatinine Urine 33.13 mg/dL; Protein/Creatinine Ratio, Ur 10.23 (<0.2); Total Protein Urine Random 339 mg/dL (<12)
[2022-04-19 11:52] LABS: Calcium (PTHI) 8.7 mg/dL (8.6-10.3); PTHI 105 pg/mL (16-77)
== END 2022-04-18 15:28 | disposition home or self-care (01) ==
LOC: HO.LAB 15:27
PROVIDERS: PCP Internal Medicine; Visit Provider Internal Medicine Nephrology
DX: E11.22 Type 2 diabetes mellitus with diabetic chronic kidney disease (principal); N18.4 Chronic kidney disease, stage 4 (severe); D63.1 Anemia in chronic kidney disease
CPT/HCPCS: 36415; 80051; 81001; 82040; 82043; 82306; 82310; 82565; 82728; 83540; 83735; 83970; 84100; 84156; 84520; 85025; 85610; 87086